=== PATIENT | female | born 1990 | race Caucasian/White ===

== ENCOUNTER 2017-05-15 15:39 | Emergency (ER) | payer SELFPAY ==
--- NOTE | 2017-05-15 16:25 | EDM.PDOC ---
ED HPI GENERAL MEDICAL PROBLEM - General Chief Complaint: Gastrointestinal Problem Stated Complaint: VOMITTING BLOOD Time Seen by Provider: 05/15/17 16:20 Source of Information: Reports: Patient History Limitations: Reports: No Limitations - History of Present Illness INITIAL COMMENTS - FREE TEXT/NARRATIVE: HISTORY AND PHYSICAL: []26-year-old female patient presents with episode of vomiting with small streak of blood in it half hour prior to presenting History of Present Illness: []She does feel somewhat nauseous still but has been drinking water since that Review of Systems: As per history of present illness and below otherwise all systems reviewed and negative. Past medical history: As per history of present illness and as reviewed below otherwise noncontributory. Surgical history: As per history of present illness and as reviewed below otherwise noncontributory. Social history: No reported history of drug or alcohol abuse. Family history: As per history of present illness and as reviewed below otherwise noncontributory. Physical exam: Alert and oriented female answering questions appropriately HEENT: Atraumatic, normocehpalic, pupils reactive, negative for conjunctival pallor or scleral icterus, mucous membranes moist, throat red, neck supple, nontender, trachea midline. Tympanic membrane dull Lungs: Clear to auscultation, breath sounds equal bilaterally, chest non tender. Heart: S1S2, regular, negative for clicks, rubs, or JVD. Abdomen: Soft, nondistended, nontender. Negative for masses or hepatossplenmegaly. Negative for costovertebral tenderness. Pelvis: Stable nontender. Genitourinary: Deferred. Rectal: Deferred Extremities: Atraumatic, negative for cords or calf pain. Neurovascular unremarkable. Neuro: Awake, alert, oriented. Cranial nerves II through XII unremarkable. Cerebellum unremarkable. Motor and sensory unremarkable throughout. Exam nonfocal. Diagnostics: [CBC CMP] Therapeutics: [Zofran Impression: [Viral gastroenteritis] Plan: []Discharged to home Zofran for nausea Omeprazole for stomach Definitive disposition and diagnosis as appropriate pending reevaluation and review of above. - Related Data Allergies Allergy/AdvReac Type Severity Reaction Status Date / Time No Known Allergies Allergy Verified 05/15/17 16:23 Home Meds: Home Meds Omeprazole 20 mg PO BIDAC #20 cap.sr 05/15/17 [Rx] Ondansetron [Zofran ODT] 4 mg PO Q6H PRN #12 tab.dis 05/15/17 [Rx] ED ROS GENERAL - Review of Systems Review Of Systems: ROS reveals no pertinent complaints other than HPI. ED EXAM, GI/ABD - Physical Exam Exam: See Below (see dictation) Course - Vital Signs Last Recorded V/S: Last Vital Signs Temp 36.6 C 05/15/17 16:23 Pulse 72 05/15/17 16:23 Resp 18 05/15/17 16:23 BP 113/85 05/15/17 16:23 Pulse Ox 99 05/15/17 16:23 - Orders/Labs/Meds Orders: Active Orders 24 hr Category Date Time Status CULTURE STREP A CONFIRMATION [] Stat Lab 05/15/17 17:00 Results STREP SCRN A RAPID W CULT CONF [] Stat Lab 05/15/17 17:00 Results Sodium Chloride 0.9% [Saline Flush] Med 05/15/17 16:26 Active 10 ml FLUSH ASDIRECTED PRN Sodium Chloride 0.9% [Saline Flush] Med 05/15/17 16:26 Active 2.5 ml FLUSH ASDIRECTED PRN Saline Lock Insert [OM.PC] Stat Oth 05/15/17 16:26 Ordered Medication Orders Sodium Chloride (Saline Flush) 10 ml FLUSH ASDIRECTED PRN PRN Reason: Keep Vein Open Sodium Chloride (Saline Flush) 2.5 ml FLUSH ASDIRECTED PRN PRN Reason: Keep Vein Open Labs: Laboratory Tests 05/15/17 05/15/17 Range/Units 16:34 16:34 WBC 3.98 L (4.0-11.0) K/uL RBC 4.20 L (4.30-5.90) M/uL Hgb 14.0 (12.0-16.0) g/dL Hct 38.8 (36.0-46.0) % MCV 92.4 (80.0-98.0) fL MCH 33.3 H (27.0-32.0) pg MCHC 36.1 (31.0-37.0) g/dL RDW Std Deviation 41.8 (28.0-62.0) fl RDW Coeff of Maged 12 (11.0-15.0) % Plt Count 232 (150-400) K/uL MPV 10.10 (7.40-12.00) fL Neut % (Auto) 35.9 L (48.0-80.0) % Lymph % (Auto) 55.3 H (16.0-40.0) % Dolores % (Auto) 7.5 (0.0-15.0) % Eos % (Auto) 1.3 (0.0-7.0) % Baso % (Auto) 0.0 (0.0-1.5) % Neut # (Auto) 1.4 (1.4-5.7) K/uL Lymph # (Auto) 2.2 (0.6-2.4) K/uL Dolores # (Auto) 0.3 (0.0-0.8) K/uL Eos # (Auto) 0.1 (0.0-0.7) K/uL Baso # (Auto) 0.0 (0.0-0.1) K/uL Nucleated RBC % 0.0 /100WBC Nucleated RBCs # 0 K/uL Sodium 137 (136-146) mmol/L Potassium 4.3 (3.5-5.1) mmol/L Chloride 105 (98-110) mmol/L Carbon Dioxide 22 (21-31) mmol/L BUN 7 (6.0-23.0) mg/dL Creatinine 0.7 (0.6-1.5) mg/dL Est Cr Clr Drug Dosing 122.35 mL/min Estimated GFR (MDRD) > 60.0 ml/min Glucose 84 (60-110) mg/dL Calcium 9.7 (8.8-10.8) mg/dL Total Bilirubin 0.5 (0.1-1.5) mg/dL AST 23 (5-40) IU/L ALT 23 (8-54) IU/L Alkaline Phosphatase 72 (40-150) Total Protein 7.5 (6.0-8.0) g/dL Albumin 4.3 (3.5-5.0) g/dL Globulin 3.2 (2.0-3.5) g/dL Albumin/Globulin Ratio 1.3 (1.3-2.8) Meds: Medications Generic Name Dose Route Start Last Admin Trade Name Freq PRN Reason Stop Dose Admin Sodium Chloride 10 ml 05/15/17 16:26 Saline Flush FLUSH ASDIRECTED PRN Keep Vein Open Sodium Chloride 2.5 ml 05/15/17 16:26 Saline Flush FLUSH ASDIRECTED PRN Keep Vein Open Discontinued Medications Generic Name Dose Route Start Last Admin Trade Name Semaj PRN Reason Stop Dose Admin Ondansetron HCl 4 mg 05/15/17 16:26 Zofran IVPUSH 05/15/17 16:27 ONETIME ONE Departure - Departure Time of Disposition: 17:43 Disposition: Home, Self-Care 01 Condition: Good Clinical Impression: Vomiting, Viral gastroenteritis - Discharge Information Prescriptions: Omeprazole 20 mg PO BIDAC #20 cap.sr Ondansetron [Zofran ODT] 4 mg PO Q6H PRN #12 tab.dis PRN Reason: Nausea Instructions: Viral Gastroenteritis, Adult, [id number], Nausea and Vomiting, Adult, [id number] Referrals: PCP,None [Primary Care Provider] - Forms: ED Department Discharge Additional Instructions: The following information is given to patients seen in the emergency department who are being discharged to home. This information is to outline your options for follow-up care. We provide all patients seen in our emergency department with a follow-up referral. The need for follow-up, as well as the timing and circumstances, are variable depending upon the specifics of your emergency department visit. If you don't have a primary care physician on staff, we will provide you with a referral. We always advise you to contact your personal physician following an emergency department visit to inform them of the circumstance of the visit and for follow-up with them and/or the need for any referrals to a consulting specialist. The emergency department will also refer you to a specialist when appropriate. This referral assures that you have the opportunity for followup care with a specialist. All of these measure are taken in an effort to provide you with optimal care, which includes your followup. Under all circumstances we always encourage you to contact your private physician who remains a resource for coordinating your care. When calling for followup care, please make the office aware that this follow-up is from your recent emergency room visit. If for any reason you are refused follow-up, please contact the [facility] emergency department at and asked to speak to the emergency department charge nurse. You were found to have a viral gastroenteritis Nausea will be controlled by Zofran ODT this prescription has been sent to your pharmacy may take it 2-3 times a day Omeprazole 20 mg twice daily for the next 10 days prescription has been sent to your pharmacy - My Orders Last 24 Hours: My Active Orders 05/15/17 16:26 Sodium Chloride 0.9% [Saline Flush] 10 ml FLUSH ASDIRECTED PRN Sodium Chloride 0.9% [Saline Flush] 2.5 ml FLUSH ASDIRECTED PRN Saline Lock Insert [OM.PC] Stat 05/15/17 17:00 CULTURE STREP A CONFIRMATION [RM] Stat STREP SCRN A RAPID W CULT CONF [] Stat - Assessment/Plan Last 24 Hours: My Active Orders 05/15/17 16:26 Sodium Chloride 0.9% [Saline Flush] 10 ml FLUSH ASDIRECTED PRN Sodium Chloride 0.9% [Saline Flush] 2.5 ml FLUSH ASDIRECTED PRN Saline Lock Insert [OM.PC] Stat 05/15/17 17:00 CULTURE STREP A CONFIRMATION [RM] Stat STREP SCRN A RAPID W CULT CONF [] Stat
[2017-05-15] MEDS ORDERED: Sodium Chloride 0.9% 10 ML Syringe FLUSH PRN (16:26)
[2017-05-15] MEDS ORDERED: Ondansetron 4 MG/2 ML SDV IVPUSH ONE (16:26)
[2017-05-15] MEDS ORDERED: Sodium Chloride 0.9% 2.5 ML Syringe FLUSH PRN (16:26)
[2017-05-15 17:15] LABS: CHLORIDE,CL 105 mmol/L (98-110); SODIUM,NA 137 mmol/L (136-146)
== END 2017-05-15 17:58 | disposition home or self-care (01) ==
LOC: MW.ED 15:39
DX: A08.4 Viral intestinal infection, unspecified (principal)
CPT/HCPCS: 36415; 80053; 85025; 87081; 87804; 87880; 96374; 99284; J2405; 99283

== ENCOUNTER 2017-10-28 20:44 | Emergency (ER) | payer MEDICAID, OTHER ==
--- NOTE | 2017-10-28 21:23 | EDM.PDOC ---
ED HPI GENERAL MEDICAL PROBLEM - General Chief Complaint: Abdominal Pain Stated Complaint: ABDOMINAL PAIN Time Seen by Provider: 10/28/17 21:22 Source of Information: Reports: Patient History Limitations: Reports: No Limitations - History of Present Illness INITIAL COMMENTS - FREE TEXT/NARRATIVE: HISTORY AND PHYSICAL: []27-year-old female presenting with abdominal pain nausea vomiting diarrhea 1 week History of Present Illness: []Patient relates the right side abdominal pain. She has had a appendectomy in the past Patient states that she vomited once today She had diarrhea twice today. On entering the room she is rocking herself while sitting on the cart. Review of Systems: As per history of present illness and below otherwise all systems reviewed and negative. Past medical history: As per history of present illness and as reviewed below otherwise noncontributory. Surgical history: As per history of present illness and as reviewed below otherwise noncontributory. Social history: No reported history of drug or alcohol abuse. Family history: As per history of present illness and as reviewed below otherwise noncontributory. Physical exam: Alert and oriented female answering questions appropriately in full sentences without any shortness of breath. Nontoxic in appearance. HEENT: Atraumatic, normocehpalic, pupils reactive, negative for conjunctival pallor or scleral icterus, mucous membranes moist, throat clear, neck supple, nontender, trachea midline. Lungs: Clear to auscultation, breath sounds equal bilaterally, chest non tender. Heart: S1S2, regular, negative for clicks, rubs, or JVD. Abdomen: Soft, nondistended, mildly tender on the right side of abdomen. Negative for masses or hepatossplenmegaly. Negative for costovertebral tenderness. Pelvis: Stable nontender. Genitourinary: Deferred. Rectal: Deferred Extremities: Atraumatic, negative for cords or calf pain. Neurovascular unremarkable. Neuro: Awake, alert, oriented. Cranial nerves II through XII unremarkable. Cerebellum unremarkable. Motor and sensory unremarkable throughout. Exam nonfocal. Lab Diagnostics: []CBC, CMP, flat and upright abdomen x-ray Therapeutics: []Dilaudid 1 mg IV 1 L of IV fluid Zofran IV Impression: []Gastroenteritis Nausea /vomiting Plan: []Discharged home Follow up with your Primary care provider this week Definitive disposition and diagnosis as appropriate pending reevaluation and review of above. Onset: Gradual Duration: Week(s): (1) Location: Reports: Abdomen Quality: Reports: Ache Severity: Moderate Improves with: Reports: None Worsens with: Reports: None Associated Symptoms: Reports: No Other Symptoms Abdominal Pain Score (Numeric/FACES): 6 - Related Data Allergies Allergy/AdvReac Type Severity Reaction Status Date / Time No Known Allergies Allergy Verified 05/15/17 16:23 Home Meds: Home Meds . [No Known Home Meds] 10/28/17 [History] Past Medical History - Past Health History Medical/Surgical History: Denies Medical/Surgical History Social & Family History - Family History Family Medical History: Noncontributory - Tobacco Use Smoking Status *Q: Current Every Day Smoker Years of Tobacco use: 10 Packs/Tins Daily: 0.5 ED ROS GENERAL - Review of Systems Review Of Systems: ROS reveals no pertinent complaints other than HPI. ED EXAM, GI/ABD - Physical Exam Exam: See Below (see dictation) Course - Vital Signs Last Recorded V/S: Last Vital Signs Temp 36.6 C 10/28/17 21:12 Pulse 55 L 10/28/17 21:12 Resp 18 10/28/17 21:12 BP 112/70 10/28/17 21:12 Pulse Ox 99 10/28/17 21:12 - Orders/Labs/Meds Orders: Active Orders 24 hr Category Date Time Status Abdomen 2V AP Flat Upright [CR] Stat Exams 10/28/17 21:43 Ordered CULTURE URINE [RM] Stat Lab 10/28/17 21:20 Received HCG QUALITATIVE,URINE [URCHEM] Stat Lab 10/28/17 21:20 Ordered UA W/MICROSCOPIC [URIN] Stat Lab 10/28/17 21:20 Ordered Sodium Chloride 0.9% [Normal Saline] 1,000 ml Med 10/28/17 21:42 Active IV STAT Sodium Chloride 0.9% [Saline Flush] Med 10/28/17 21:43 Active 10 ml FLUSH ASDIRECTED PRN Sodium Chloride 0.9% [Saline Flush] Med 10/28/17 21:43 Active 2.5 ml FLUSH ASDIRECTED PRN Saline Lock Insert [OM.PC] Stat Oth 10/28/17 21:43 Ordered Medication Orders Sodium Chloride (Normal Saline) 1,000 mls @ 999 mls/hr IV STAT ONE Stop: 10/28/17 22:42 Last Admin: 10/28/17 21:30 Dose: 999 mls/hr Sodium Chloride (Saline Flush) 10 ml FLUSH ASDIRECTED PRN PRN Reason: Keep Vein Open Sodium Chloride (Saline Flush) 2.5 ml FLUSH ASDIRECTED PRN PRN Reason: Keep Vein Open Labs: Laboratory Tests 10/28/17 10/28/17 10/28/17 Range/Units 21:20 21:20 21:20 WBC 6.69 (4.0-11.0) K/uL RBC 4.67 (4.30-5.90) M/uL Hgb 15.1 (12.0-16.0) g/dL Hct 43.1 (36.0-46.0) % MCV 92.3 (80.0-98.0) fL MCH 32.3 H (27.0-32.0) pg MCHC 35.0 (31.0-37.0) g/dL RDW Std Deviation 44.7 (28.0-62.0) fl RDW Coeff of Maged 13 (11.0-15.0) % Plt Count 271 (150-400) K/uL MPV 10.10 (7.40-12.00) fL Neut % (Auto) 30.7 L (48.0-80.0) % Lymph % (Auto) 58.0 H (16.0-40.0) % Evangeline % (Auto) 9.4 (0.0-15.0) % Eos % (Auto) 1.8 (0.0-7.0) % Baso % (Auto) 0.1 (0.0-1.5) % Neut # (Auto) 2.1 (1.4-5.7) K/uL Lymph # (Auto) 3.9 H (0.6-2.4) K/uL Evangeline # (Auto) 0.6 (0.0-0.8) K/uL Eos # (Auto) 0.1 (0.0-0.7) K/uL Baso # (Auto) 0.0 (0.0-0.1) K/uL Nucleated RBC % 0.0 /100WBC Nucleated RBCs # 0 K/uL Sodium 140 (136-145) mmol/L Potassium 3.6 (3.5-5.1) mmol/L Chloride 104 (98-107) mmol/L Carbon Dioxide 27.8 (21.0-32.0) mmol/L BUN 9 (7.0-18.0) mg/dL Creatinine 0.9 (0.6-1.0) mg/dL Est Cr Clr Drug Dosing 93.29 mL/min Estimated GFR (MDRD) > 60.0 ml/min Glucose 93 (74-106) mg/dL Calcium 9.1 (8.5-10.1) mg/dL Total Bilirubin 0.6 (0.2-1.0) mg/dL AST 21 (15-37) IU/L ALT 29 (14-63) IU/L Alkaline Phosphatase 77 (46-116) U/L Total Protein 7.9 (6.4-8.2) g/dL Albumin 4.0 (3.4-5.0) g/dL Globulin 3.9 H (2.0-3.5) g/dL Albumin/Globulin Ratio 1.0 L (1.3-2.8) Urine Color YELLOW Urine Appearance CLEAR Urine pH 6.0 (5.0-8.0) Ur Specific [place]worth 1.020 (1.001-1.035) Urine Protein NEGATIVE (NEGATIVE) mg/dL Urine Glucose (UA) NEGATIVE (NEGATIVE) mg/dL Urine Ketones NEGATIVE (NEGATIVE) mg/dL Urine Occult Blood NEGATIVE (NEGATIVE) Urine Nitrite NEGATIVE (NEGATIVE) Urine Bilirubin NEGATIVE (NEGATIVE) Urine Urobilinogen 1.0 (<2.0) EU/dL Ur Leukocyte Esterase NEGATIVE (NEGATIVE) Urine RBC 0-1 (0-2/HPF) Urine WBC 0-2 (0-5/HPF) Ur Epithelial Cells FEW (NONE-FEW) Urine Bacteria FEW (NEGATIVE) Urine HCG, Qual (NEGATIVE) 10/28/17 Range/Units 21:20 WBC (4.0-11.0) K/uL RBC (4.30-5.90) M/uL Hgb (12.0-16.0) g/dL Hct (36.0-46.0) % MCV (80.0-98.0) fL MCH (27.0-32.0) pg MCHC (31.0-37.0) g/dL RDW Std Deviation (28.0-62.0) fl RDW Coeff of Maged (11.0-15.0) % Plt Count (150-400) K/uL MPV (7.40-12.00) fL Neut % (Auto) (48.0-80.0) % Lymph % (Auto) (16.0-40.0) % Evangeline % (Auto) (0.0-15.0) % Eos % (Auto) (0.0-7.0) % Baso % (Auto) (0.0-1.5) % Neut # (Auto) (1.4-5.7) K/uL Lymph # (Auto) (0.6-2.4) K/uL Evangeline # (Auto) (0.0-0.8) K/uL Eos # (Auto) (0.0-0.7) K/uL Baso # (Auto) (0.0-0.1) K/uL Nucleated RBC % /100WBC Nucleated RBCs # K/uL Sodium (136-145) mmol/L Potassium (3.5-5.1) mmol/L Chloride (98-107) mmol/L Carbon Dioxide (21.0-32.0) mmol/L BUN (7.0-18.0) mg/dL Creatinine (0.6-1.0) mg/dL Est Cr Clr Drug Dosing mL/min Estimated GFR (MDRD) ml/min Glucose (74-106) mg/dL Calcium (8.5-10.1) mg/dL Total Bilirubin (0.2-1.0) mg/dL AST (15-37) IU/L ALT (14-63) IU/L Alkaline Phosphatase (46-116) U/L Total Protein (6.4-8.2) g/dL Albumin (3.4-5.0) g/dL Globulin (2.0-3.5) g/dL Albumin/Globulin Ratio (1.3-2.8) Urine Color Urine Appearance Urine pH (5.0-8.0) Ur Specific Acworth (1.001-1.035) Urine Protein (NEGATIVE) mg/dL Urine Glucose (UA) (NEGATIVE) mg/dL Urine Ketones (NEGATIVE) mg/dL Urine Occult Blood (NEGATIVE) Urine Nitrite (NEGATIVE) Urine Bilirubin (NEGATIVE) Urine Urobilinogen (<2.0) EU/dL Ur Leukocyte Esterase (NEGATIVE) Urine RBC (0-2/HPF) Urine WBC (0-5/HPF) Ur Epithelial Cells (NONE-FEW) Urine Bacteria (NEGATIVE) Urine HCG, Qual NEGATIVE (NEGATIVE) Meds: Medications Generic Name Dose Route Start Last Admin Trade Name Freq PRN Reason Stop Dose Admin Sodium Chloride 1,000 mls @ 999 mls/hr 10/28/17 21:42 10/28/17 21:30 Normal Saline IV 10/28/17 22:42 999 mls/hr STAT ONE Administration Sodium Chloride 10 ml 10/28/17 21:43 Saline Flush FLUSH ASDIRECTED PRN Keep Vein Open Sodium Chloride 2.5 ml 10/28/17 21:43 Saline Flush FLUSH ASDIRECTED PRN Keep Vein Open Discontinued Medications Generic Name Dose Route Start Last Admin Trade Name Freq PRN Reason Stop Dose Admin Ketorolac Tromethamine 30 mg 10/28/17 21:42 10/28/17 22:00 Toradol IVPUSH 10/28/17 21:43 30 mg ONETIME ONE Administration Ondansetron HCl 4 mg 10/28/17 21:42 10/28/17 22:06 Zofran IVPUSH 10/28/17 21:43 4 mg ONETIME ONE Administration Departure - Departure Time of Disposition: 22:16 Disposition: Home, Self-Care 01 Condition: Good Clinical Impression: Gastroenteritis - Discharge Information *PRESCRIPTION DRUG MONITORING PROGRAM REVIEWED*: Not Applicable *COPY OF PRESCRIPTION DRUG MONITORING REPORT IN PATIENT HILDA: Not Applicable Instructions: Viral Gastroenteritis, Adult Referrals: PCP,None [Primary Care Provider] - Forms: ED Department Discharge Additional Instructions: The following information is given to patients seen in the emergency department who are being discharged to home. This information is to outline your options for follow-up care. We provide all patients seen in our emergency department with a follow-up referral. The need for follow-up, as well as the timing and circumstances, are variable depending upon the specifics of your emergency department visit. If you don't have a primary care physician on staff, we will provide you with a referral. We always advise you to contact your personal physician following an emergency department visit to inform them of the circumstance of the visit and for follow-up with them and/or the need for any referrals to a consulting specialist. The emergency department will also refer you to a specialist when appropriate. This referral assures that you have the opportunity for followup care with a specialist. All of these measure are taken in an effort to provide you with optimal care, which includes your followup. Under all circumstances we always encourage you to contact your private physician who remains a resource for coordinating your care. When calling for followup care, please make the office aware that this follow-up is from your recent emergency room visit. If for any reason you are refused follow-up, please contact the [facility] emergency department at and asked to speak to the emergency department charge nurse. You do not have any acute infection process that is treatable with antibiotics Use [id number] products to stop her diarrhea as directed on the bottle/box Follow-up With your primary care provider Return to the emergency room instructed and discussed - My Orders Last 24 Hours: My Active Orders 10/28/17 21:20 CULTURE URINE [RM] Stat HCG QUALITATIVE,URINE [URCHEM] Stat UA W/MICROSCOPIC [URIN] Stat 10/28/17 21:42 Sodium Chloride 0.9% [Normal Saline] 1,000 ml IV STAT 10/28/17 21:43 Abdomen 2V AP Flat Upright [CR] Stat Sodium Chloride 0.9% [Saline Flush] 10 ml FLUSH ASDIRECTED PRN Sodium Chloride 0.9% [Saline Flush] 2.5 ml FLUSH ASDIRECTED PRN Saline Lock Insert [OM.PC] Stat - Assessment/Plan Last 24 Hours: My Active Orders 10/28/17 21:20 CULTURE URINE [RM] Stat HCG QUALITATIVE,URINE [URCHEM] Stat UA W/MICROSCOPIC [URIN] Stat 10/28/17 21:42 Sodium Chloride 0.9% [Normal Saline] 1,000 ml IV STAT 10/28/17 21:43 Abdomen 2V AP Flat Upright [CR] Stat Sodium Chloride 0.9% [Saline Flush] 10 ml FLUSH ASDIRECTED PRN Sodium Chloride 0.9% [Saline Flush] 2.5 ml FLUSH ASDIRECTED PRN Saline Lock Insert [OM.PC] Stat
[2017-10-28] MEDS ORDERED: Ondansetron 4 MG/2 ML SDV IVPUSH ONE (21:42)
[2017-10-28] MEDS ORDERED: Sodium Chloride 0.9% 1,000 ML IV ONE (21:42)
[2017-10-28] MEDS ORDERED: Ketorolac 30 MG/ML SDV IVPUSH ONE (21:42)
[2017-10-28] MEDS ORDERED: Sodium Chloride 0.9% 2.5 ML Syringe FLUSH PRN (21:43)
[2017-10-28] MEDS ORDERED: Sodium Chloride 0.9% 10 ML Syringe FLUSH PRN (21:43)
[2017-10-28 22:08] LABS: CHLORIDE,CL 104 mmol/L (98-107); SODIUM,NA 140 mmol/L (136-145)
--- NOTE | 2017-10-29 10:33 | CR ---
EXAM DATE: 10/28/17 PATIENT'S AGE: 27 Patient: CRUZITO ORTEGA Facility: [place], [place] Site . Site : 1990 Study: XRay Abdomen [id number]/[id number] 10:55:56 PM Ordering Physician: Doctor Acosta Final Report: INDICATION: Right lower quadrant abdominal pain with nausea, vomiting, diarrhea. TECHNIQUE: Upright and supine views of the abdomen, total of 3 images. IMPRESSION : The bowel gas pattern is nonobstructive. Upright exam shows no free air under the hemidiaphragms. Mild volume of colonic stool. No pathologic abdominal calcifications. If clinical concern for acute appendicitis, consider CT evaluation. Dictated by Jose C Chinchilla MD @ 10/28/2017 11:06:31 PM Dictated by: Jose C Chinchilla MD @ 10/28/2017 23:06:41 (Electronic Signature) Report Signed by Proxy. MTDNery
== END 2017-10-28 23:15 | disposition home or self-care (01) ==
LOC: MW.ED 20:44
DX: K52.9 Noninfective gastroenteritis and colitis, unspecified (principal); F17.210 Nicotine dependence, cigarettes, uncomplicated
CPT/HCPCS: 74019; 80053; 81001; 81025; 85025; 87086; 96361; 96374; 96375; 99284; J1885; J2405; J7040

== ENCOUNTER 2019-08-08 22:49 | Emergency (ER) | payer BC, MEDICAID ==
--- NOTE | 2019-08-08 23:15 | EDM.PDOC ---
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 She has no other symptoms besides slight cramping Onset: Today Location: Reports: Head, Chest Improves with: Reports: None Worsens with: Reports: None Associated Symptoms: Reports: No Other Symptoms Lower Abdomen Pain Score (Numeric/FACES): 3 - Related Data Allergies Allergy/AdvReac Type Severity Reaction Status Date / Time No Known Allergies Allergy Verified 08/08/19 22:59 Home Meds: Home Meds . 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 Musculoskeletal History: Reports: None Neurological History: Reports: None Psychiatric History: Reports: None Endocrine/Metabolic History: Reports: None Hematologic History: Reports: None Immunologic History: Reports: None Oncologic (Cancer) History: Reports: None Dermatologic History: Reports: None - Infectious Disease History Infectious Disease History: Reports: Chicken Pox - Past Surgical History Head Surgeries/Procedures: Reports: None HEENT Surgical History: Reports: Tonsillectomy Cardiovascular Surgical History: Reports: None Respiratory Surgical History: Reports: None GI Surgical History: Reports: Appendectomy Female Surgical History: Reports: D&C Endocrine Surgical History: Reports: None Neurological Surgical History: Reports: None Musculoskeletal Surgical History: Reports: None Oncologic Surgical History: Reports: None Dermatological Surgical History: Reports: None Social & Family History - Family History Family Medical History: Noncontributory Other Cardiac Family History: Mother- heart disease : Reports: Renal Disease/Insufficiency Endocrine/Metabolic: Reports: Diabetes, Type I - Tobacco Use Smoking Status *Q: Current Every Day Smoker Years of Tobacco use: 1 Packs/Tins Daily: 0.3 - Caffeine Use Caffeine Use: Reports: Coffee - Recreational Drug Use Recreational Drug Use: No ED ROS GENERAL - Review of Systems Review Of Systems: See Below Constitutional: Reports: No Symptoms HEENT: Reports: No Symptoms Respiratory: Reports: No Symptoms Cardiovascular: Reports: No Symptoms Endocrine: Reports: No Symptoms GI/Abdominal: Reports: No Symptoms : Reports: No Symptoms Musculoskeletal: Reports: No Symptoms Skin: Reports: No Symptoms Neurological: Reports: No Symptoms Psychiatric: Reports: No Symptoms Hematologic/Lymphatic: Reports: No Symptoms Immunologic: Reports: No Symptoms ED EXAM - Physical Exam Exam: See Below Exam Limited By: No Limitations General Appearance: Alert, WD/WN, No Apparent Distress Eye Exam: Bilateral Eye: Normal Fundi, Normal Inspection Ears: Normal External Exam, Normal Canal, Hearing Grossly Normal, Normal TMs Nose: Normal Inspection, Normal Mucosa Throat/Mouth: Normal Inspection, Normal Lips, Normal Teeth Head: Atraumatic, Normocephalic Neck: Normal Inspection, Supple, Non-Tender Respiratory/Chest: No Respiratory Distress, Lungs Clear, Normal Breath Sounds, No Accessory Muscle Use, Chest Non-Tender Cardiovascular: Normal Peripheral Pulses, Regular Rate, Rhythm GI/Abdominal Exam: Normal Bowel Sounds, Soft, Non-Tender, No Distention, No Abnormal Bruit Rectal Exam: Deferred (Female) Exam: Other (Has 8weeks demise on ultrasound.) Psychiatric: Normal Affect, Normal Mood Skin Exam: Warm, Dry, Intact, Normal Color Lymphatic: No Adenopathy Course - Vital Signs Text/Narrative:: She has 8-week demise on ultrasound Discussed case with Facundo on-call/she states they will follow-up with Dr. Dietz This point she does not need Cytotec/patient has had qualitative beta-hCG and needs hCG is to follow. Last Recorded V/S: Last Vital Signs Temp 98.3 F 08/08/19 22:59 Pulse 78 08/09/19 01:30 Resp 16 08/09/19 01:30 BP 120/69 08/09/19 01:30 Pulse Ox 99 08/09/19 01:30 - Orders/Labs/Meds Labs: Laboratory Tests 08/08/19 08/08/19 08/08/19 Range/Units 23:06 23:15 23:15 WBC 7.36 (4.0-11.0) K/uL RBC 4.28 L (4.30-5.90) M/uL Hgb 12.4 (12.0-16.0) g/dL Hct 37.4 (36.0-46.0) % MCV 87.4 (80.0-98.0) fL MCH 29.0 (27.0-32.0) pg MCHC 33.2 (31.0-37.0) g/dL RDW Std Deviation 47.3 (28.0-62.0) fl RDW Coeff of Maged 15 (11.0-15.0) % Plt Count 326 (150-400) K/uL MPV 9.50 (7.40-12.00) fL Neut % (Auto) 48.5 (48.0-80.0) % Lymph % (Auto) 42.4 H (16.0-40.0) % Anson % (Auto) 7.2 (0.0-15.0) % Eos % (Auto) 1.8 (0.0-7.0) % Baso % (Auto) 0.1 (0.0-1.5) % Neut # (Auto) 3.6 (1.4-5.7) K/uL Lymph # (Auto) 3.1 H (0.6-2.4) K/uL [place]son # (Auto) 0.5 (0.0-0.8) K/uL Eos # (Auto) 0.1 (0.0-0.7) K/uL Baso # (Auto) 0.0 (0.0-0.1) K/uL Nucleated RBC % 0.0 /100WBC Nucleated RBCs # 0 K/uL Sodium 137 (136-145) mmol/L Potassium 3.4 L (3.5-5.1) mmol/L Chloride 102 (98-107) mmol/L Carbon Dioxide 26.6 (21.0-32.0) mmol/L BUN 7 (7.0-18.0) mg/dL Creatinine 0.8 (0.6-1.0) mg/dL Est Cr Clr Drug Dosing 108.44 mL/min Estimated GFR (MDRD) > 60.0 ml/min Glucose 85 (74-106) mg/dL Calcium 8.9 (8.5-10.1) mg/dL Total Bilirubin 0.7 (0.2-1.0) mg/dL AST 32 (15-37) IU/L ALT 35 (14-63) IU/L Alkaline Phosphatase 89 (46-116) U/L Total Protein 7.6 (6.4-8.2) g/dL Albumin 3.8 (3.4-5.0) g/dL Globulin 3.8 (2.6-4.0) g/dL Albumin/Globulin Ratio 1.0 (0.9-1.6) HCG, Quant mIU/mL Urine HCG, Qual POSITIVE (NEGATIVE) 08/08/19 Range/Units 23:15 WBC (4.0-11.0) K/uL RBC (4.30-5.90) M/uL Hgb (12.0-16.0) g/dL Hct (36.0-46.0) % MCV (80.0-98.0) fL MCH (27.0-32.0) pg MCHC (31.0-37.0) g/dL RDW Std Deviation (28.0-62.0) fl RDW Coeff of Maged (11.0-15.0) % Plt Count (150-400) K/uL MPV (7.40-12.00) fL Neut % (Auto) (48.0-80.0) % Lymph % (Auto) (16.0-40.0) % Anson % (Auto) (0.0-15.0) % Eos % (Auto) (0.0-7.0) % Baso % (Auto) (0.0-1.5) % Neut # (Auto) (1.4-5.7) K/uL Lymph # (Auto) (0.6-2.4) K/uL Anson # (Auto) (0.0-0.8) K/uL Eos # (Auto) (0.0-0.7) K/uL Baso # (Auto) (0.0-0.1) K/uL Nucleated RBC % /100WBC Nucleated RBCs # K/uL Sodium (136-145) mmol/L Potassium (3.5-5.1) mmol/L Chloride (98-107) mmol/L Carbon Dioxide (21.0-32.0) mmol/L BUN (7.0-18.0) mg/dL Creatinine (0.6-1.0) mg/dL Est Cr Clr Drug Dosing mL/min Estimated GFR (MDRD) ml/min Glucose (74-106) mg/dL Calcium (8.5-10.1) mg/dL Total Bilirubin (0.2-1.0) mg/dL AST (15-37) IU/L ALT (14-63) IU/L Alkaline Phosphatase (46-116) U/L Total Protein (6.4-8.2) g/dL Albumin (3.4-5.0) g/dL Globulin (2.6-4.0) g/dL Albumin/Globulin Ratio (0.9-1.6) HCG, Quant 15911.0 mIU/mL Urine HCG, Qual (NEGATIVE) Departure - Departure Time of Disposition: 02:15 Disposition: Home, Self-Care 01 Condition: Fair Clinical Impression: demise - Discharge Information Instructions: Demise Referrals: PCP,None [Primary Care Provider] - Hedy Dietz MD [Physician] - Forms: ED Department Discharge Additional Instructions: The patient is to follow-up with Dr. Dietz If patient has severe bleeding/pain patient is to return Patient will probably miscarry within the next 2 to 3 days To return for fever or chills or severe abdominal pain Sepsis Event Note - Evaluation Sepsis Screening Result: No Definite Risk - Focused Exam Vital Signs: Vital Signs Temp Pulse Resp BP Pulse Ox 08/09/19 01:30 78 16 120/69 99 08/09/19 00:22 80 16 125/80 98 08/08/19 22:59 98.3 F 94 16 123/79 99 Date Exam was Performed: 08/09/19 Time Exam was Performed: 02:13
[2019-08-08 23:41] LABS: BLOOD UREA NITROGEN,BUN 7 mg/dL (7.0-18.0); CARBON DIOXIDE,CO2 26.6 mmol/L (21.0-32.0); CHLORIDE,CL 102 mmol/L (98-107); GLUCOSE RANDOM 85 mg/dL (74-106); POTASSIUM,K 3.4 mmol/L (3.5-5.1); SODIUM,NA 137 mmol/L (136-145)
--- NOTE | 2019-08-09 01:44 | US ---
INDICATION: Vaginal bleeding TECHNIQUE: Ultrasound OB pelvis transabdominal and transvaginal. Real-time alcantar-scale imaging of the pelvis was performed. COMPARISON: None available FINDINGS: There is an intrauterine gestational sac, containing a pole with a crown-rump length of 15 mm, corresponding to 8 weeks and 0 days, compared to 9 weeks and 2 days by dates. No cardiac activity is documented. A yolk sac is seen, measuring 5 mm. There is small fluid in the endocervical canal. The right ovary measures 3.0 x 1.4 x 3.1 cm and the left ovary measures 3.3 x 2.1 x 3.3 cm, containing a 1.8 x 1.5 x 1.7 cm corpus luteum. Bilateral ovarian Doppler flow is documented. No significant free fluid is seen. IMPRESSION: An intrauterine gestation at 8 weeks and 0 days by crown-rump length, without cardiac activity, consistent with demise. The findings were discussed with Dr. Burt, by phone, on 08/09/2019 at 1:40 a.m.. Dictated by Simone Guillen MD @ 08/09/2019 1:42:52 AM Dictated by: Simone Guillen MD @ 08/09/2019 01:42:59 (Electronically Signed)
== END 2019-08-09 02:30 | disposition home or self-care (01) ==
LOC: MW.ED 22:49
DX: O02.1 Missed abortion (principal); F17.210 Nicotine dependence, cigarettes, uncomplicated
CPT/HCPCS: 36415; 76817; 76817-26; 80053; 81025; 84702; 85025; 99283; 99284-25

== ENCOUNTER → 2019-08-12 | Day surgery (SDC) | payer MEDICAID ==
[~2019-08-12] MED LIST: Acetaminophen/HYDROcodone 325-5 MG Tab PO PRN; Ketorolac 30 MG/ML SDV IVPUSH ONE; Lactated Ringers 1,000 ML IV SCH; Midazolam 1 MG/ML 2 ML SDV ONE; Propofol 200 MG/20 ML SDV ONE; fentaNYL 100 MCG/2 ML SDV ONE
--- NOTE | 2019-08-12 12:21 | PCM.PREANE ---
Preanesthetic Assessment - Anesthesia/Transfusion/Family Hx Anesthesia History: Prior Anesthesia Without Reaction Family History of Anesthesia Reaction: No Transfusion History: No Prior Transfusion(s) - Review of Systems General: No Symptoms Pulmonary: No Symptoms Cardiovascular: No Symptoms Gastrointestinal: No Symptoms Neurological: No Symptoms Other: Reports: None - Physical Assessment NPO Status Date: 08/11/19 ASA Class: 2 Mental Status: Alert & Oriented x3 Airway Class: Mallampati = 2 Dentition: Reports: Normal Dentition ROM/Head Extension: Full Lungs: Clear to Auscultation, Normal Respiratory Effort Cardiovascular: Regular Rate, Regular Rhythm - Allergies Allergies/Adverse Reactions: Allergies Allergy/AdvReac Type Severity Reaction Status Date / Time No Known Allergies Allergy Verified 08/08/19 22:59 - Blood Blood Available: No - Anesthesia Plan Pre-Op Medication Ordered: None - Acknowledgements Pt an Appropriate Candidate for the Planned Anesthesia: Yes Alternatives and Risks of Anesthesia Discussed w Pt/Guardian: Yes Pt/Guardian Understands and Agrees with Anesthesia Plan: Yes PreAnesthesia Questionnaire - Past Health History Medical/Surgical History: Denies Medical/Surgical History HEENT History: Reports: None Cardiovascular History: Reports: None Respiratory History: Reports: None Gastrointestinal History: Reports: None Genitourinary History: Reports: 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: , 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 Musculoskeletal History: Reports: None Neurological History: Reports: None Psychiatric History: Reports: None Endocrine/Metabolic History: Reports: None Hematologic History: Reports: None Immunologic History: Reports: None Oncologic (Cancer) History: Reports: None Dermatologic History: Reports: None - Infectious Disease History Infectious Disease History: Reports: Chicken Pox - Past Surgical History Head Surgeries/Procedures: Reports: None HEENT Surgical History: Reports: Tonsillectomy Cardiovascular Surgical History: Reports: None Respiratory Surgical History: Reports: None GI Surgical History: Reports: Appendectomy Female Surgical History: Reports: D&C Endocrine Surgical History: Reports: None Neurological Surgical History: Reports: None Musculoskeletal Surgical History: Reports: None Oncologic Surgical History: Reports: None Dermatological Surgical History: Reports: None - HOME MEDS Home Medications: Home Meds . [No Known Home Meds] 08/08/19 [History]
--- NOTE | 2019-08-12 13:04 | PCM.DCSUM1 ---
Discharge Summary - Hospital Course Diagnosis: Stroke: No - Discharge Data Discharge Date: 08/12/19 Discharge Disposition: Home, Self-Care 01 Condition: Good - Referral to Home Health Primary Care Physician: PCP None - Patient Summary/Data Operative Procedure(s) Performed: D&E - Patient Instructions Diet: Usual Diet as Tolerated Activity: As Tolerated - Discharge Plan Home Medications: Home Meds . [No Known Home Meds] 08/08/19 [History] - Discharge Summary/Plan Comment DC Time >30 min.: Yes - General Info Date of Service: 08/12/19 Functional Status: Reports: Pain Controlled - Review of Systems General: Reports: No Symptoms HEENT: Reports: No Symptoms Pulmonary: Reports: No Symptoms Cardiovascular: Reports: No Symptoms Gastrointestinal: Reports: No Symptoms Genitourinary: Reports: No Symptoms Musculoskeletal: Reports: No Symptoms Skin: Reports: No Symptoms Neurological: Reports: No Symptoms Psychiatric: Reports: No Symptoms - Patient Data Vitals - Most Recent: Last Vital Signs Temp 36.1 C 08/12/19 12:46 Pulse 75 08/12/19 12:46 Resp 16 08/12/19 12:46 BP 115/70 08/12/19 12:46 Pulse Ox 99 08/12/19 12:46 Weight - Most Recent: 70.307 kg Med Orders - Current: Current Medications Discontinued Medications Fentanyl (Sublimaze) Confirm Administered Dose 100 mcg .ROUTE .STK-MED ONE Stop: 08/12/19 12:28 Midazolam HCl (Versed 1 Mg/Ml) Confirm Administered Dose 2 mg .ROUTE .STK-MED ONE Stop: 08/12/19 12:28 Midazolam HCl (Versed 1 Mg/Ml) Confirm Administered Dose 2 mg .ROUTE .STK-MED ONE Stop: 08/12/19 12:42 Propofol (Diprivan 20 Ml) Confirm Administered Dose 200 mg .ROUTE .STK-MED ONE Stop: 08/12/19 12:28 - Exam General: Reports: Alert, Oriented HEENT: Reports: Pupils Equal, Pupils Reactive, EOMI, Mucous Membr. Moist/[place] Neck: Reports: Supple Lungs: Reports: Clear to Auscultation, Normal Respiratory Effort Cardiovascular: Reports: Regular Rate, Regular Rhythm GI/Abdominal Exam: Normal Bowel Sounds, Soft, Non-Tender, No Organomegaly, No Distention, No Abnormal Bruit, No Mass, Pelvis Stable (Female) Exam: Normal External Exam, Normal Speculum Exam, Normal Bimanual Exam Rectal (Female) Exam: Normal Exam, Normal Rectal Tone Back Exam: Reports: Normal Inspection, Full Range of Motion Extremities: Normal Inspection, Normal Range of Motion, Non-Tender, No Pedal Edema, Normal Capillary Refill Skin: Reports: Warm, Dry, Intact Wound/Incisions: Reports: Healing Well Neurological: Reports: No New Focal Deficit Psy/Mental Status: Reports: Alert, Normal Affect, Normal Mood
--- NOTE | 2019-08-12 13:04 | PCM.OPNOTE ---
- General Post-Op/Procedure Note Date of Surgery/Procedure: 08/12/19 Operative Procedure(s): D&E Pre Op Diagnosis: blighted ovum Post-Op Diagnosis: Same Anesthesia Technique: Spinal Primary Surgeon: Kevin Bonilla EBL in mLs: 50 Complications: None Condition: Good
--- NOTE | 2019-08-12 13:27 | PCM.POSTAN ---
POST ANESTHESIA ASSESSMENT - MENTAL STATUS Mental Status: Alert, Oriented - VITAL SIGNS Vital Signs: Last Vital Signs Temp 36.2 C 08/12/19 13:02 Pulse 71 08/12/19 13:21 Resp 12 08/12/19 13:21 BP 107/70 08/12/19 13:21 Pulse Ox 97 08/12/19 13:21 - RESPIRATORY Respiratory Status: Respiratory Rate WNL, Airway Patent, O2 Saturation Stable - CARDIOVASCULAR CV Status: Pulse Rate WNL, Blood Pressure Stable - GASTROINTESTINAL GI Status: No Symptoms - PAIN Pain Score: 7 Free Text/Narrative:: Pts eyes closed and smiling. plan to give pain pill in sameday surgery if needed. - POST OP HYDRATION Hydration Status: Adequate & Stable
--- NOTE | 2019-08-12 15:43 | OR ---
SURGEON: Kevin Bonilla MD DATE OF PROCEDURE: 08/12/2019 PREOPERATIVE DIAGNOSIS: Blighted ovum. POSTOPERATIVE DIAGNOSIS: Blighted ovum. OPERATION PERFORMED: Dilatation and evacuation. MEAT CUTTER APPRENTICE: OR tech. ANESTHESIA: Spinal, Cynthia Garcia and Dr. Wallace. ESTIMATED BLOOD LOSS: 50 to 70 mL. COMPLICATIONS: None. FINDING: Products of conception. INDICATION FOR SURGERY: A 28-year-old patient being , seen in our clinic, is found to have a blighted ovum. The patient declined conservative measures, expectant measure, and Cytotec. She elected to have D and E. PROCEDURE IN DETAIL: The patient was brought to the OR, properly identified. After adequate level of spinal anesthesia, patient was prepped and draped in sterile fashion as usual. A weighted speculum was placed in the vagina. Straight catheter used to empty the bladder and then a single toothed tenaculum applied to the cervix. The cervix sequentially dilated to accommodate #8 cannula and a #8 curved cannula was placed in the endometrial cavity and hooked to suction curette and suction curettage performed removing all products of conception from the uterus. Once this had done, the suction was stopped and the cannula removed and the procedure ended. Instrument and sponge count was completed, and the patient tolerated the procedure well, went to recovery room in stable general condition. SHANICE / ANA /[id number]
== END | disposition home or self-care (01) ==
LOC: MW.SDS 11:59
PROVIDERS: ATTEND Obstetrics & Gynecology
DX: O02.0 Blighted ovum and nonhydatidiform mole (principal)
CPT/HCPCS: 59812; A9270; J1885; J2250; J2704; J3010; J7120; 88305

== ENCOUNTER 2020-03-13 11:29 | Emergency (ER) | payer MEDICAID ==
--- NOTE | 2020-03-13 21:31 | PCM.SN.2 ---
- Free Text/Narrative Note: Per nursing notes, patient left without being seen from triage. She was not seen by myself.
== END 2020-03-13 13:44 | disposition left against medical advice (07) ==
LOC: MW.ED 11:29
DX: Z53.21 Procedure and treatment not carried out due to patient leaving prior to being seen by health care provider (principal)

== ENCOUNTER 2020-03-14 12:50 | Emergency (ER) | payer MEDICAID ==
--- NOTE | 2020-03-14 13:07 | EDM.PDOC ---
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 Musculoskeletal History: Reports: None Neurological History: Reports: None Psychiatric History: Reports: None Endocrine/Metabolic History: Reports: None Hematologic History: Reports: None Immunologic History: Reports: None Oncologic (Cancer) History: Reports: None Dermatologic History: Reports: None - Infectious Disease History Infectious Disease History: Reports: Chicken Pox - Past Surgical History Head Surgeries/Procedures: Reports: None HEENT Surgical History: Reports: Tonsillectomy Cardiovascular Surgical History: Reports: None Respiratory Surgical History: Reports: None GI Surgical History: Reports: Appendectomy Female Surgical History: Reports: D&C Endocrine Surgical History: Reports: None Neurological Surgical History: Reports: None Musculoskeletal Surgical History: Reports: None Oncologic Surgical History: Reports: None Dermatological Surgical History: Reports: None Social & Family History - Family History Family Medical History: No Pertinent Family History Other Cardiac Family History: Mother- heart disease : Reports: Renal Disease/Insufficiency Endocrine/Metabolic: Reports: Diabetes, Type I - Caffeine Use Caffeine Use: Reports: Coffee Course - Vital Signs Last Recorded V/S: Last Vital Signs Temp 36.1 C 03/14/20 13:03 Pulse 61 03/14/20 13:03 Resp 20 03/14/20 13:03 BP 109/86 03/14/20 13:03 Pulse Ox 98 03/14/20 13:03 Departure - Discharge Information Referrals: PCP,None [Primary Care Provider] - Sepsis Event Note (ED) - Evaluation Sepsis Screening Result: No Definite Risk - Focused Exam Vital Signs: Vital Signs Temp Pulse Resp BP Pulse Ox 03/14/20 13:03 36.1 C 61 20 109/86 98
[2020-03-14] MEDS ORDERED: Sodium Chloride 0.9% 1,000 ML IV ONE (13:45)
[2020-03-14] MEDS ORDERED: Morphine 4 MG/ML Syringe IVPUSH ONE (13:45)
[2020-03-14] MEDS ORDERED: Ondansetron 4 MG/2 ML SDV IVPUSH ONE (13:45)
--- NOTE | 2020-03-14 13:56 | EDM.PDOC ---
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 Patient states that Dr. Darshana Peng told her on 02/29/2020 that she was miscarrying and was going to allow her the chance to pass products on her own. Patient states she did not have any vaginal bleeding but was having some abdominal discomfort. Patient states she checked into the emergency room yesterday but while waiting in the waiting room, was able to get a hold of Dr. Bonilla and was instructed to come to the clinic so she checked out of the emergency room before being seen. Patient states Dr. Bonilla prescribed her Cytotec to help pass the products. Patient states that she started taking the medication last night and has had vaginal bleeding, passing blood clots, and lower abdominal pain. Patient states when she woke up this morning, the pain increased as well as the bleeding and she has been vomiting so has not been able to keep down the pain medication that Dr. Darshana Peng gave her. Patient states she did take 1 dose of [place] this morning before the vomiting sent in but has not been able to take any more pain medication since. Patient states she has a h istory of appendectomy but denies any other abdominal surgeries. Patient states she has had 27 pregnancies that have all miscarried early, 2 requiring D&C and others passing spontaneously according to patient. States she lived in [place] for most of these pregnancies. Patient denies fever, chills, chest pain, shortness of breath, or cough. Denies headache, neck stiff ness, change in vision, syncope, or near syncope. Denies diarrhea, constipation, or dysuria. Has not noted any blood in urine or stool. Review of systems: As per history of present illness and below otherwise all systems reviewed and negative. Past medical history: As per history of present illness and as reviewed below otherwise noncontributory. Surgical history: As per history of present illness and as reviewed below otherwise noncontributory. Social history: See social history for further information Family history: As per history of present illness and as reviewed below otherwise noncontributory. Physical exam: General: Patient is alert, oriented, and in no acute distress. Patient sitting on exam table and does appear in pain, holding lower abdomen. Vitals stable and reviewed by me. HEENT: Atraumatic, normocephalic, pupils equal and reactive bilaterally, negative for conjunctival pallor or scleral icterus, mucous membranes moist, TMs normal bilaterally, throat clear, neck supple, nontender, trachea midline. No drooling or trismus noted. No meningeal signs. No hot potato voice noted. Lungs: Clear to auscultation, breath sounds equal bilaterally, chest nontender. Heart: S1S2, regular rate and rhythm without overt murmur Abdomen: Soft, nondistended, moderate suprapubic tender. Negative kessler sign. Negative rebound. Negative for masses or hepatosplenomegaly. Negative for costovertebral tenderness. Pelvis: Stable nontender. Genitourinary: Slitter Cut Off Operator at bedside Monique Chavez External genitalia grossly unremarkable. There is a moderate amount of bleeding from the vaginal vault with small clots formed. Cervix is slightly open with a consistent trickle of bleeding from the os. Rectal: Deferred. Skin: Intact, warm, dry. No lesions or rashes noted. Extremities: Atraumatic, negative for cords or calf pain. Neurovascular unremarkable. Neuro: Awake, alert, oriented. Cranial nerves II through XII unremarkable. Cerebellum unremarkable. Motor and sensory unremarkable throughout. Exam nonfocal. Notes: Dr. Pretty directly involved in patient care. Dr. Bonilla has come in to personally see and evaluate the patient. See his official consult note for further treatment / disposition for patient. Signs and symptoms that would prompt return to the ED thoroughly discussed with patient. Discussed importance for follow-up with her NETWORK SYSTEMS ENGINEER provider. Patient is asking for additional follow-up for a another NETWORK SYSTEMS ENGINEER provider rather than Dr. Bonilla. Patient was provided with [facility] women's health information if she desires to set up an appointment with a different provider. I will give patient a prescription for Zofran for nausea and vomiting. Close/strict return precautions discussed with patient. Voices understanding and is agreeable to plan of care. Denies any further questions or concerns at this time. Diagnostics: CBC, CMP, UA, Blood type, TVUS, Hcg Quant Therapeutics: NS, Morphine, Zofran, Prescription: Zofran Impression: Incomplete Plan: 1. Pelvic rest until cleared by your OBGYN (no tampons, sex, etc...) 2. Take medication as prescribed to you by Dr. Bonilla. Take medication as prescribed. You can also use Tylenol as directed for pain and discomfort. 3. Follow up with your NETWORK SYSTEMS ENGINEER as scheduled and as discussed. Return to the ED as needed and as discussed. Definitive disposition and diagnosis as appropriate pending reevaluation and review of above. Lower Abdomen Pain Score (Numeric/FACES): 9 - Related Data Allergies Allergy/AdvReac Type Severity Reaction Status Date / Time No Known Allergies Allergy Verified 03/14/20 13:03 Home Meds: Home Meds Ondansetron [Zofran ODT] 4 mg PO Q6H PRN #8 tab.dis 03/14/20 [Rx] Past Medical History - Past Health History Medical/Surgical History: Denies Medical/Surgical History HEENT History: Reports: None Cardiovascular History: Reports: None Respiratory History: Reports: None Gastrointestinal History: Reports: None Other Gastrointestinal History: has had GERD in the past- not currently taking medication Genitourinary History: Reports: STD NETWORK SYSTEMS ENGINEER History: Reports: , Spontaneous Musculoskeletal History: Reports: None Neurological History: Reports: None Psychiatric History: Reports: None Endocrine/Metabolic History: Reports: None Hematologic History: Reports: Anemia Immunologic History: Reports: None Oncologic (Cancer) History: Reports: None Dermatologic History: Reports: None - Infectious Disease History Infectious Disease History: Reports: Chicken Pox - Past Surgical History Head Surgeries/Procedures: Reports: None HEENT Surgical History: Reports: Tonsillectomy Cardiovascular Surgical History: Reports: None Respiratory Surgical History: Reports: None GI Surgical History: Reports: Appendectomy Female Surgical History: Reports: D&C Endocrine Surgical History: Reports: None Neurological Surgical History: Reports: None Musculoskeletal Surgical History: Reports: None Oncologic Surgical History: Reports: None Dermatological Surgical History: Reports: None Social & Family History - Family History Family Medical History: No Pertinent Family History Other Cardiac Family History: Mother- heart disease : Reports: Renal Disease/Insufficiency Endocrine/Metabolic: Reports: Diabetes, Type I - Tobacco Use Tobacco Use Status *Q: Former Tobacco User Used Tobacco, but Quit: Yes Month/Year Tobacco Last Used: 01/31 - Caffeine Use Caffeine Use: Reports: Coffee - Recreational Drug Use Recreational Drug Use: No ED ROS GENERAL - Review of Systems Review Of Systems: Comprehensive ROS is negative, except as noted in HPI. ED EXAM, GENERAL - Physical Exam Exam: See Below (see dictation) Course - Vital Signs Last Recorded V/S: Last Vital Signs Temp 97 F 03/14/20 13:03 Pulse 75 03/14/20 15:27 Resp 14 03/14/20 15:27 BP 114/64 03/14/20 15:27 Pulse Ox 99 03/14/20 15:27 - Orders/Labs/Meds Orders: Active Orders 24 hr Category Date Time Status Notify Provider Consults [RC] ASDIRECTED Care 03/14/20 15:44 Active Consult to Physician [CONS] Stat Cons 03/14/20 15:43 Active CULTURE URINE [RM] Stat Lab 03/14/20 12:58 Received Labs: Laboratory Tests 03/14/20 03/14/20 03/14/20 Range/Units 12:58 12:58 13:59 WBC 6.57 (4.0-11.0) K/uL RBC 4.27 L (4.30-5.90) M/uL Hgb 12.3 (12.0-16.0) g/dL Hct 36.8 (36.0-46.0) % MCV 86.2 (80.0-98.0) fL MCH 28.8 (27.0-32.0) pg MCHC 33.4 (31.0-37.0) g/dL RDW Std Deviation 47.5 (28.0-62.0) fl RDW Coeff of Maged 15 (11.0-15.0) % Plt Count 306 (150-400) K/uL MPV 9.70 (7.40-12.00) fL Neut % (Auto) 39.6 L (48.0-80.0) % Lymph % (Auto) 49.3 H (16.0-40.0) % [place] % (Auto) 8.8 (0.0-15.0) % Eos % (Auto) 2.1 (0.0-7.0) % Baso % (Auto) 0.2 (0.0-1.5) % Neut # (Auto) 2.6 (1.4-5.7) K/uL Lymph # (Auto) 3.2 H (0.6-2.4) K/uL [place] # (Auto) 0.6 (0.0-0.8) K/uL Eos # (Auto) 0.1 (0.0-0.7) K/uL Baso # (Auto) 0.0 (0.0-0.1) K/uL Nucleated RBC % 0.0 /100WBC Nucleated RBCs # 0 K/uL Sodium (136-145) mmol/L Potassium (3.5-5.1) mmol/L Chloride (98-107) mmol/L Carbon Dioxide (21.0-32.0) mmol/L BUN (7.0-18.0) mg/dL Creatinine (0.6-1.0) mg/dL Est Cr Clr Drug Dosing mL/min Estimated GFR (MDRD) ml/min Glucose (74-106) mg/dL Calcium (8.5-10.1) mg/dL Total Bilirubin (0.2-1.0) mg/dL AST (15-37) IU/L ALT (14-63) IU/L Alkaline Phosphatase (46-116) U/L Total Protein (6.4-8.2) g/dL Albumin (3.4-5.0) g/dL Globulin (2.6-4.0) g/dL Albumin/Globulin Ratio (0.9-1.6) HCG, Quant mIU/mL Urine Color RED Urine Appearance CLOUDY Urine pH 5.5 (5.0-8.0) Ur Specific [place] >= 1.030 (1.001-1.035) Urine Protein 100 H (NEGATIVE) mg/dL Urine Glucose (UA) NEGATIVE (NEGATIVE) mg/dL Urine Ketones NEGATIVE (NEGATIVE) mg/dL Urine Occult Blood MODERATE H (NEGATIVE) Urine Nitrite POSITIVE H (NEGATIVE) Urine Bilirubin NEGATIVE (NEGATIVE) Urine Urobilinogen 1.0 (<2.0) EU/dL Ur Leukocyte Esterase TRACE H (NEGATIVE) Urine RBC TOO NUMEROUS TO CT H (0-2/HPF) Urine WBC 0-4 (0-5/HPF) Ur Epithelial Cells FEW (NONE-FEW) Urine Bacteria FEW (NEGATIVE) Urinalysis Comment Urine HCG, Qual POSITIVE (NEGATIVE) Blood Type 03/14/20 03/14/20 Range/Units 13:59 13:59 WBC (4.0-11.0) K/uL RBC (4.30-5.90) M/uL Hgb (12.0-16.0) g/dL Hct (36.0-46.0) % MCV (80.0-98.0) fL MCH (27.0-32.0) pg MCHC (31.0-37.0) g/dL RDW Std Deviation (28.0-62.0) fl RDW Coeff of Maged (11.0-15.0) % Plt Count (150-400) K/uL MPV (7.40-12.00) fL Neut % (Auto) (48.0-80.0) % Lymph % (Auto) (16.0-40.0) % [place] % (Auto) (0.0-15.0) % Eos % (Auto) (0.0-7.0) % Baso % (Auto) (0.0-1.5) % Neut # (Auto) (1.4-5.7) K/uL Lymph # (Auto) (0.6-2.4) K/uL [place] # (Auto) (0.0-0.8) K/uL Eos # (Auto) (0.0-0.7) K/uL Baso # (Auto) (0.0-0.1) K/uL Nucleated RBC % /100WBC Nucleated RBCs # K/uL Sodium 137 (136-145) mmol/L Potassium 3.6 (3.5-5.1) mmol/L Chloride 104 (98-107) mmol/L Carbon Dioxide 21.6 (21.0-32.0) mmol/L BUN 4 L (7.0-18.0) mg/dL Creatinine 0.7 (0.6-1.0) mg/dL Est Cr Clr Drug Dosing 122.81 mL/min Estimated GFR (MDRD) > 60.0 ml/min Glucose 79 (74-106) mg/dL Calcium 9.0 (8.5-10.1) mg/dL Total Bilirubin 0.6 (0.2-1.0) mg/dL AST 30 (15-37) IU/L ALT 47 (14-63) IU/L Alkaline Phosphatase 125 H (46-116) U/L Total Protein 7.7 (6.4-8.2) g/dL Albumin 3.7 (3.4-5.0) g/dL Globulin 4.0 (2.6-4.0) g/dL Albumin/Globulin Ratio 0.9 (0.9-1.6) HCG, Quant 97573.0 mIU/mL Urine Color Urine Appearance Urine pH (5.0-8.0) Ur Specific [place] (1.001-1.035) Urine Protein (NEGATIVE) mg/dL Urine Glucose (UA) (NEGATIVE) mg/dL Urine Ketones (NEGATIVE) mg/dL Urine Occult Blood (NEGATIVE) Urine Nitrite (NEGATIVE) Urine Bilirubin (NEGATIVE) Urine Urobilinogen (<2.0) EU/dL Ur Leukocyte Esterase (NEGATIVE) Urine RBC (0-2/HPF) Urine WBC (0-5/HPF) Ur Epithelial Cells (NONE-FEW) Urine Bacteria (NEGATIVE) Urinalysis Comment Urine HCG, Qual (NEGATIVE) Blood Type B POSITIVE Meds: Medications Discontinued Medications Generic Name Dose Route Start Last Admin Trade Name Freq PRN Reason Stop Dose Admin Sodium Chloride 1,000 mls @ 999 mls/hr 03/14/20 13:45 03/14/20 14:01 Normal Saline IV 03/14/20 14:45 999 mls/hr STAT ONE Administration Morphine Sulfate 4 mg 03/14/20 13:45 03/14/20 14:01 Morphine IVPUSH 03/14/20 13:46 4 mg ONETIME ONE Administration Ondansetron HCl 4 mg 03/14/20 13:45 03/14/20 14:01 Zofran IVPUSH 03/14/20 13:46 4 mg ONETIME ONE Administration Departure - Departure Time of Disposition: 15:50 Disposition: Home, Self-Care 01 Clinical Impression: Incomplete - Discharge Information Prescriptions: Ondansetron [Zofran ODT] 4 mg PO Q6H PRN #8 tab.dis PRN Reason: Nausea/Vomiting Referrals: PCP,None [Primary Care Provider] - Forms: ED Department Discharge Additional Instructions: The following information is given to patients seen in the emergency department who are being discharged to home. This information is to outline your options for follow-up care. We provide all patients seen in our emergency department with a follow-up referral. The need for follow-up, as well as the timing and circumstances, are variable depending upon the specifics of your emergency department visit. If you don't have a primary care physician on staff, we will provide you with a referral. We always advise you to contact your personal physician following an emergency department visit to inform them of the circumstance of the visit and for follow-up with them and/or the need for any referrals to a consulting specialist. The emergency department will also refer you to a specialist when appropriate. This referral assures that you have the opportunity for follow-up care with a specialist. All of these measure are taken in an effort to provide you with optimal care, which includes your follow-up. Under all circumstances we always encourage you to contact your private physician who remains a resource for coordinating your care. When calling for follow-up care, please make the office aware that this follow-up is from your recent emergency room visit. If for any reason you are refused follow-up, please contact the [facility] at and asked to speak to the emergency department charge nurse. [facility] [address] [place] [address] [place] [address] [facility] [address] [place] [id number] 1. Pelvic rest until cleared by your OBGYN (no tampons, sex, etc...) 2. Take medication as prescribed to you by Dr. Bonilla. Take medication as prescribed. You can also use Tylenol as directed for pain and discomfort. 3. Follow up with your NETWORK SYSTEMS ENGINEER as scheduled and as discussed. Return to the ED as needed and as discussed. Sepsis Event Note (ED) - Evaluation Sepsis Screening Result: No Definite Risk - Focused Exam Vital Signs: Vital Signs Temp Pulse Resp BP Pulse Ox 03/14/20 15:27 75 14 114/64 99 03/14/20 14:27 60 16 110/61 99 03/14/20 13:03 97 F 61 20 109/86 98 - My Orders Last 24 Hours: My Active Orders 03/14/20 12:58 CULTURE URINE [RM] Stat 03/14/20 15:43 Consult to Physician [CONS] Stat 03/14/20 15:44 Notify Provider Consults [RC] ASDIRECTED - Assessment/Plan Last 24 Hours: My Active Orders 03/14/20 12:58 CULTURE URINE [RM] Stat 03/14/20 15:43 Consult to Physician [CONS] Stat 03/14/20 15:44 Notify Provider Consults [RC] ASDIRECTED
[2020-03-14 14:55] LABS: BLOOD UREA NITROGEN,BUN 4 mg/dL (7.0-18.0); CARBON DIOXIDE,CO2 21.6 mmol/L (21.0-32.0); CHLORIDE,CL 104 mmol/L (98-107); GLUCOSE RANDOM 79 mg/dL (74-106); POTASSIUM,K 3.6 mmol/L (3.5-5.1); SODIUM,NA 137 mmol/L (136-145)
--- NOTE | 2020-03-14 15:21 | US ---
Examination: Obstetric ultrasound Indication: . Bleeding. Technique: Grayscale, color Doppler, and spectral Doppler images are obtained transabdominally and transvaginally. Comparison: None available Findings: Uterus measures 8.8 x 5.1 x 5.8 cm. No gestational sac in the uterus. There is heterogeneous material, likely blood products filling the endometrium which is 2.5 cm thick. There is no flow within the endometrial contents. Indeterminate cystic structure in the cul-de-sac measuring 4.5 x 6.8 x 6.0 cm. No definite ovarian tissue is identified adjacent to the cyst. Neither ovary is clearly identified. Impression: 1. No intrauterine identified. There is heterogeneous material in the uterine cavity l likely representing blood products. Retained products of conception not excluded. 2. Indeterminate cystic structure in the cul-de-sac, not documented in other prior ultrasound reports. This could be an ovarian cyst (no definite adjacent ovarian tissue identified), or possibly loculated blood or serous fluid. If this were an ovarian cyst and it was displaced medially, that could raise the possibility of ovarian torsion. Dictated by Jasson Lara MD @ Mar 14 2020 3:08PM Signed by Dr. Jasson Lara @ Mar 14 2020 3:19PM
--- NOTE | 2020-03-14 16:00 | PCM.SN.2 ---
- Free Text/Narrative Note: The patient was presented to me by the mid-level provider, who sees patients independently as a licensed independent practitioner by [facility] and [facility] law. Up until the time that I was consulted and assumed supervision, the mid-level provider had been solely and independently caring for this patient and they were responsible for all aspects of care including performing the history and physical, formulating medical decision making, ordering medications, and ordering and evaluating testing. I have personally and independently seen and evaluated the patient at bedside and, if available, have spoken with the with the family. I agree with the history, physical, medical decision making, and plan of treatment as documented by the mid-level provider. I have performed the medical decision making for this patient, including assessing the results of all diagnostic testing and I have instructed the mid-level provider to document the results and carry through with the treatment plan that I deemed appropriate. If needed, any other comments, a focused physical examination, or my own medical decision making are documented below. In brief, this is a 29-year-old female with a past medical history of multiple failed pregnancies, currently under the care of Dr. Bonilla with [facility] for incomplete miscarriage. She was seen in his clinic yesterday and was prescribed Cytotec to help with the miscarriage progress. Since leaving the clinic yesterday, she has complained of worsening vaginal bleeding and worsening of midline pelvic pain. She comes back to the ER this afternoon for evaluation of these complaints. She did take 1 dose of [place] at home but was not able to keep it down due to vomiting. Focused physical exam Vital signs reviewed. Nursing notes reviewed. Constitutional: Awake, alert, non-distressed. Head: Normocephalic, atraumatic. Pulmonary: normal work of breathing, no accessory muscle use. Abdomen/GI: Soft, minimal midline pelvic tenderness, nondistended, no guarding or rigidity, no masses. Integumentary: Appropriate color for ethnicity, warm, dry, no pallor or jaundic e, no rash. Neurologic: Alert, answering questions appropriately, normal speech, no facial droop, moving all extremities well. Psychiatric: Appropriate mood and affect, normal thought process. Appears much more comfortable after receiving morphine in the ED. Labs today show normal hemoglobin, white blood cell count, and platelet count. Metabolic panel is unremarkable. Serum quantitative hCG is 13,697. Urinalysis shows 100 protein, moderate occult blood, positive nitrites, numerous red blood cells. We obtained a pelvic ultrasound which shows no IUP, does note heterogenous material in the uterine cavity likely retained blood products. The radiologist did also note an indeterminate cystic structure in the cul-de-sac which measures 4.5 x 6.8 x 6.0 cm. The radiologist did not identify any definite ovarian tissue and did not see either ovary. The radiologist was concerned about possible ovarian torsion given the appearance of this indeterminate cystic structure in the cul-de-sac. This is a significant change from her most recent pelvic ultrasound obtained on 08/09/2019. The ultrasound at that time showed normal-appearing ovaries with good flow to both adnexa. Given possibility of ovarian torsion, we did formally consult the on-call ABA THERAPIST Dr. Bonilla. He evaluated the patient in the emergency department at approximately 1545 hrs. and states that he is not concerned about ovarian torsion. He is comfortable with discharging the patient home with continuance of her prescribed pain medications. Patient will follow up with Dr. Bonilla's office in the next few days. Dictated note by Dr. Bonilla will be attached to this chart. Patient subsequently discharged to self-care in good condition.
--- NOTE | 2020-03-15 07:50 | CONS ---
DATE OF CONSULTATION: 03/14/2020 DATE OF : 1990 PRIMARY CARE PHYSICIAN: None PCP Emergency Room Consultation Ms. Martin has a blighted ovum. I saw her in the office yesterday and I started her on Cytotec, and I gave her some pain medications; however, she presented to the emergency room today complaining of pain and vaginal bleeding. She had an ultrasound, which shows that she expelled most of the products of conception. Comparing to the ultrasound I did on her yesterday that it seems to be her uterus is almost empty; however, the patient does have corpus luteal cyst of the . The radiologist read a possibility of torsion of that ovary; however, the patient clinically does not have a torsion. Her abdomen is soft. There is minimum tenderness. There is no rebound tenderness. It is most likely this is corpus luteal cyst of the . I reassured the patient and I told her to continue to take her pain medication and to keep her appointment to the office next week. SHANICE / ANA /[id number]
== END 2020-03-14 16:28 | disposition home or self-care (01) ==
LOC: MW.ED 12:50
DX: O03.4 Incomplete spontaneous abortion without complication (principal); Z87.891 Personal history of nicotine dependence; Z90.49 Acquired absence of other specified parts of digestive tract
CPT/HCPCS: 36415; 76801; 80053; 81001; 81025; 84702; 85025; 86900; 86901; 87086; 87088; 87186; 96374; 96375; 99284; J2270; J2405; J7030

== ENCOUNTER 2020-09-21 14:55 | Emergency (ER) | payer SELFPAY ==
--- NOTE | 2020-09-21 15:47 | EDM.PDOC ---
ED HPI GENERAL MEDICAL PROBLEM - General Chief Complaint: Skin Complaint Stated Complaint: INFECTION ON NECK Time Seen by Provider: 09/21/20 15:03 Source of Information: Reports: Patient History Limitations: Reports: No Limitations - History of Present Illness INITIAL COMMENTS - FREE TEXT/NARRATIVE: HISTORY AND PHYSICAL: History of present illness: Patient is a 30-year-old female who presents to the ED today with concern of possible tattoo infection that she noticed when her son pointed at her tattoo just prior to travel to the emergency room stating that he was seeing some crusting. The tattoo is on her posterior neck so she states that she is unable to see it and when he had mentioned this because she is not able to see it well was concerned that it could be infected. Patient denies any fevers, redness to the area, or pain of the area and states that she thought it was healing appropriately. Patient states that her son had noticed that it was peeling so she thought it was infected. Patient states that she had this done by her friend who is a makeup artistry instructor with clean needles and was disinfected prior to the tattooing. Patient denies fever, chills, chest pain, shortness of breath, or cough. Denies headache, neck stiff ness, change in vision, syncope, or near syncope. Denies nausea, vomiting, abdominal pain, diarrhea, constipation, or dysuria. Has not no ricardo any blood in urine or stool. Patient has been eating and drinking appropriately. Review of systems: As per history of present illness and below otherwise all systems reviewed and negative. Past medical history: As per history of present illness and as reviewed below otherwise noncontributory. Surgical history: As per history of present illness and as reviewed below otherwise noncontribut ory. Social history: See social history for further information Family history: As per history of present illness and as reviewed below otherwise noncontributory. Physical exam: General: Patient is alert, oriented, and in no acute distress. Patient sitting comfortably on exam table. Vitals stable and reviewed by me. HEENT: There is a tattoo noted to the posterior neck which appears dry and flaky without signs of erythema, edema, increased warmth, or pain to palpation. Otherwise, atraumatic, normocephalic, pupils equal and reactive bilaterally, negative for conjunctival pallor or scleral icterus, mucous membranes moist, TMs normal bilaterally, throat clear, neck supple, nontender, trachea midline. No drooling or trismus noted. No meningeal signs. No hot potato voice noted. Lungs: Clear to auscultation, breath sounds equal bilaterally, chest nontender. Heart: S1S2, regular rate and rhythm without overt murmur Abdomen: Soft, nondistended, nontender. Negative for masses or hepatospl enomegaly. Negative for costovertebral tenderness. Pelvis: Stable nontender. Genitourinary: Deferred. Rectal: Deferred. Skin: Intact, warm, dry. No lesions or rashes noted. Extremities: Atraumatic, negative for cords or calf pain. Neurovascular unremarkable. Neuro: Awake, alert, oriented. Cranial nerves II through XII unremarkable. Cerebellum unremarkable. Motor and sensory unremarkable throughout. Exam nonfocal. Notes: Signs and symptoms that would prompt return to the ED thoroughly discussed with patient. Discussed importance of follow-up with a primary care provider. Voices understanding and is agreeable to plan of care. Denies any further questions or concerns at this time. Diagnostics: None Therapeutics: None Prescription: None Impression: Tattoo with dry skin Plan: 1. Apply Aquaphor to the area frequently to keep the area moist and not dry as discussed. Return to the ED as needed and as discussed. Definitive disposition and diagnosis as appropriate pending reevaluation and review of above. - Related Data Allergies Allergy/AdvReac Type Severity Reaction Status Date / Time No Known Allergies Allergy Verified 09/21/20 15:13 Home Meds: Home Meds . 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 Musculoskeletal History: Reports: None Neurological History: Reports: None Psychiatric History: Reports: None Endocrine/Metabolic History: Reports: None Hematologic History: Reports: Anemia Immunologic History: Reports: None Oncologic (Cancer) History: Reports: None Dermatologic History: Reports: None - Infectious Disease History Infectious Disease History: Reports: Chicken Pox - Past Surgical History Head Surgeries/Procedures: Reports: None HEENT Surgical History: Reports: Tonsillectomy Cardiovascular Surgical History: Reports: None Respiratory Surgical History: Reports: None GI Surgical History: Reports: Appendectomy Female Surgical History: Reports: D&C Other Female Surgeries/Procedures: previous D&E x2 Endocrine Surgical History: Reports: None Neurological Surgical History: Reports: None Musculoskeletal Surgical History: Reports: None Oncologic Surgical History: Reports: None Dermatological Surgical History: Reports: None Social & Family History - Family History Family Medical History: No Pertinent Family History Other Cardiac Family History: Mother- heart disease : Reports: Renal Disease/Insufficiency Endocrine/Metabolic: Reports: Diabetes, Type I - Tobacco Use Packs/Tins Daily: 0.5 - Caffeine Use Caffeine Use: Reports: Coffee - Recreational Drug Use Recreational Drug Use: No ED ROS GENERAL - Review of Systems Review Of Systems: Comprehensive ROS is negative, except as noted in HPI. ED EXAM, SKIN/RASH Exam: See Below (see dictation) Course - Vital Signs Last Recorded V/S: Last Vital Signs Temp 97.5 F 09/21/20 15:11 Pulse 70 09/21/20 16:06 Resp 16 09/21/20 16:06 BP 110/70 09/21/20 16:06 Pulse Ox 98 09/21/20 16:06 Departure - Departure Time of Disposition: 15:46 Disposition: Home, Self-Care 01 Clinical Impression: Tattoo reaction - Discharge Information Instructions: Rash, Adult Referrals: Daniela Carter MD [Primary Care Provider] - Forms: ED Department Discharge Additional Instructions: The following information is given to patients seen in the emergency department who are being discharged to home. This information is to outline your options for follow-up care. We provide all patients seen in our emergency department wit h a follow-up referral. The need for follow-up, as well as the timing and circumstances, are variable depending upon the specifics of your emergency department visit. If you don't have a primary care physician on staff, we will provide you with a referral. We always advise you to contact your personal physician following an emergency department visit to inform them of the circumstance of the visit and for follow-up with them and/or the need for any referrals to a consulting specialist. The emergency department will also refer you to a specialist when appropriate. This referral assures that you have the opportunity for follow-up care with a specialist. All of these measure are taken in an effort to provide you with optimal care, which includes your follow-up. Under all circumstances we always encourage you to contact your private physician who remains a resource for coordinating your care. When calling for follow-up care, please make the office aware that this follow-up is from your recent emergency room visit. If for any reason you are refused follow-up, please contact the [facility] Emergency Department at and asked to speak to the emergency department charge nurse. [facility] [address] [place] [id number] [facility] [address] [place] [id number] 1. Apply Aquaphor to the area frequently to keep the area moist and not dry as discussed. Return to the ED as needed and as discussed. Sepsis Event Note (ED) - Evaluation Sepsis Screening Result: No Definite Risk - Focused Exam Vital Signs: Vital Signs Temp Pulse Resp BP Pulse Ox 09/21/20 16:06 70 16 110/70 98 09/21/20 15:11 97.5 F 68 16 113/75 96
== END 2020-09-21 16:07 | disposition home or self-care (01) ==
LOC: MW.ED 14:55
DX: L85.3 Xerosis cutis (principal); Z72.0 Tobacco use
CPT/HCPCS: 99282

== ENCOUNTER 2021-03-10 18:12 | Emergency (ER) | payer MEDICAID ==
[2021-03-10] MEDS ORDERED: Ibuprofen 600 MG Tab PO ONE (18:29)
[2021-03-10] MEDS ORDERED: Acetaminophen/oxyCODONE 325-5 MG Tab PO ONE (18:29)
--- NOTE | 2021-03-10 18:32 | EDM.PDOC ---
ED HPI GENERAL MEDICAL PROBLEM - General Chief Complaint: Upper Extremity Injury/Pain Stated Complaint: POSSIBLE BROKEN THUMB Time Seen by Provider: 03/10/21 18:26 Source of Information: Reports: Patient History Limitations: Reports: No Limitations - History of Present Illness INITIAL COMMENTS - FREE TEXT/NARRATIVE: 30-year-old female no relevant past medical history presents for right thumb injury. Patient hit her thumb in the car door. She notes a throbbing sensation and some bleeding around the base of the nailbed. She denies any other injuries. She is right-handed. Right Finger-Thumb Pain Score (Numeric/FACES): 10 - Related Data Allergies Allergy/AdvReac Type Severity Reaction Status Date / Time No Known Allergies Allergy Verified 03/10/21 18:26 Home Meds: Home Meds Acetaminophen/oxyCODONE [Percocet 325-5 MG] 1 each PO Q6H PRN #8 tab 03/10/21 [Rx] Ibuprofen [Motrin] 600 mg PO Q6H PRN #20 tab 03/10/21 [Rx] Past Medical History - Past Health History Medical/Surgical History: Denies Medical/Surgical History HEENT History: Reports: None Cardiovascular History: Reports: None Respiratory History: Reports: None Gastrointestinal History: Reports: None Other Gastrointestinal History: has had GERD in the past- not currently taking medication 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: , 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 Musculoskeletal History: Reports: None Neurological History: Reports: None Psychiatric History: Reports: None Endocrine/Metabolic History: Reports: None Hematologic History: Reports: Anemia Immunologic History: Reports: None Oncologic (Cancer) History: Reports: None Dermatologic History: Reports: None - Infectious Disease History Infectious Disease History: Reports: Chicken Pox - Past Surgical History Head Surgeries/Procedures: Reports: None HEENT Surgical History: Reports: Tonsillectomy Cardiovascular Surgical History: Reports: None Respiratory Surgical History: Reports: None GI Surgical History: Reports: Appendectomy Female Surgical History: Reports: D&C Other Female Surgeries/Procedures: previous D&E x2 Endocrine Surgical History: Reports: None Neurological Surgical History: Reports: None Musculoskeletal Surgical History: Reports: None Oncologic Surgical History: Reports: None Dermatological Surgical History: Reports: None Social & Family History - Family History Family Medical History: No Pertinent Family History Other Cardiac Family History: Mother- heart disease : Reports: Renal Disease/Insufficiency Endocrine/Metabolic: Reports: Diabetes, Type I - Caffeine Use Caffeine Use: Reports: Coffee Review of Systems - Review of Systems Review Of Systems: Comprehensive ROS is negative, except as noted in HPI. ED EXAM, GENERAL - Physical Exam Exam: See Below Exam Limited By: No Limitations General Appearance: Alert, WD/WN, No Apparent Distress Ears: Hearing Grossly Normal Throat/Mouth: Normal Voice, No Airway Compromise Head: Atraumatic, Normocephalic Respiratory/Chest: No Respiratory Distress, No Accessory Muscle Use Cardiovascular: Normal Peripheral Pulses Extremities: Other (swelling of DIP R thumb, small amount of bleeding around base of nailbed, however good color to finger and nailbed, normal capillary refill, intact sensation, no overt deformity) Neurological: Alert, Normal Cognition, Normal Gait Psychiatric: Normal Affect, Normal Mood Skin Exam: Warm, Dry, Intact, Normal Color Course - Vital Signs Last Recorded V/S: Last Vital Signs Temp 98.1 F 03/10/21 18:27 Pulse 80 03/10/21 18:27 Resp 18 03/10/21 18:27 BP 123/80 03/10/21 18:27 Pulse Ox 98 03/10/21 18:27 - Orders/Labs/Meds Orders: Active Orders 24 hr Category Date Time Status Splinting [RC] ASDIRECTED Care 03/10/21 18:55 Ordered Fingers Thumb Rt F5 [CR] Stat Exams 03/10/21 18:29 Taken Meds: Medications Discontinued Medications Generic Name Dose Route Start Last Admin Trade Name Freq PRN Reason Stop Dose Admin Ibuprofen 600 mg 03/10/21 18:29 03/10/21 18:39 Ibuprofen 600 Mg Tab PO 03/10/21 18:30 600 mg ONETIME ONE Administration Oxycodone/Acetaminophen 1 tab 03/10/21 18:29 03/10/21 18:42 Acetaminophen/Oxycodone 325-5 Mg Tab PO 03/10/21 18:30 1 tab ONETIME ONE Administration - Re-Assessments/Exams Free Text/Narrative Re-Assessment/Exam: 03/10/21 18:31 Will treat pain, will get XR to r/o fracture Departure - Departure Time of Disposition: 18:56 Disposition: Home, Self-Care 01 Condition: Good Clinical Impression: Thumb fracture Qualifiers: Encounter type: initial encounter Fracture type: closed Phalanx: distal Fracture alignment: nondisplaced Laterality: right Qualified Code(s): S62.524A - Nondisplaced fracture of distal phalanx of right thumb, initial encounter for closed fracture - Discharge Information Prescriptions: Ibuprofen [Motrin] 600 mg PO Q6H PRN #20 tab PRN Reason: Pain Acetaminophen/oxyCODONE [Percocet 325-5 MG] 1 each PO Q6H PRN #8 tab PRN Reason: Pain Instructions: Thumb Fracture Referrals: PCP,None [Primary Care Provider] - Forms: ED Department Discharge Additional Instructions: Please wear the thumb splint for at least 1 week. I have sent pain medication to [facility]. The following information is given to patients seen in the emergency department who are being discharged to home. This information is to outline your options for follow-up care. We provide all patients seen in our emergency department with a follow-up referral. The need for follow-up, as well as the timing and circumstances, are variable depending upon the specifics of your emergency department visit. If you don't have a primary care physician on staff, we will provide you with a referral. We always advise you to contact your personal physician following an emergency department visit to inform them of the circumstance of the visit and for follow-up with them and/or the need for any referrals to a consulting specialist. The emergency department will also refer you to a specialist when appropriate. This referral assures that you have the opportunity for follow-up care with a specialist. All of these measure are taken in an effort to provide you with optimal care, which includes your follow-up. Under all circumstances we always encourage you to contact your private physician who remains a resource for coordinating your care. When calling for follow-up care, please make the office aware that this follow-up is from your recent emergency room visit. If for any reason you are refused follow-up, please contact the [facility] Emergency Department at and asked to speak to the emergency department charge nurse. Please follow up with your primary care physician. If you do not have a primary care physician, see below: [facility] [address] [place] [id number] [facility] [address] [place] [id number] [facility] [address] [place] [address] Sepsis Event Note (ED) - Focused Exam Vital Signs: Vital Signs Temp Pulse Resp BP Pulse Ox 03/10/21 18:27 98.1 F 80 18 123/80 98 - My Orders Last 24 Hours: My Active Orders 03/10/21 18:29 Fingers Thumb Rt F5 [CR] Stat 03/10/21 18:55 Splinting [RC] ASDIRECTED - Assessment/Plan Last 24 Hours: My Active Orders 03/10/21 18:29 Fingers Thumb Rt F5 [CR] Stat 03/10/21 18:55 Splinting [RC] ASDIRECTED
--- NOTE | 2021-03-10 19:04 | CR ---
Indication: Trauma. Technique: Right thumb 3 views. Comparison: None. Findings: Bones: Fall oblique image demonstrates a suspected small nondisplaced fracture in the anterior cortex of the distal phalanx. No other osseous abnormality. Joint spaces: Unremarkable. Soft tissues: Unremarkable. Dictated by Darren Curtis MD @ 03/10/2021 7:02:46 PM (Electronically Signed)
== END 2021-03-10 19:34 | disposition home or self-care (01) ==
LOC: MW.ED 18:12
DX: S62.524A Nondisplaced fracture of distal phalanx of right thumb, initial encounter for closed fracture (principal); W22.09XA Striking against other stationary object, initial encounter
CPT/HCPCS: 73140; 99283; A9270

== ENCOUNTER 2021-05-04 23:12 | Emergency (ER) | payer MEDICAID | END 2021-05-05 00:03 | disposition home or self-care (01) | LOC: MW.ED 23:12 | DX: R50.9 Fever, unspecified (principal); R19.7 Diarrhea, unspecified; R05.9 Cough, unspecified; Z20.822 Contact with and (suspected) exposure to COVID-19 | CPT/HCPCS: 71045; 71045-26; 99283-25 ==

== ENCOUNTER 2021-08-11 04:25 | Emergency (ER) | payer MEDICAID ==
[2021-08-11] MEDS ORDERED: Ketorolac 30 MG/ML SDV IM ONE (04:33)
== END 2021-08-11 06:04 | disposition home or self-care (01) ==
LOC: MW.ED 04:25
DX: M79.642 Pain in left hand (principal)
CPT/HCPCS: 73130; 96372; 99283; J1885

== ENCOUNTER 2021-12-16 23:35 | Emergency (ER) | payer MEDICAID | END 2021-12-17 01:15 | disposition left against medical advice (07) | LOC: MW.ED 23:35 | DX: Z53.21 Procedure and treatment not carried out due to patient leaving prior to being seen by health care provider (principal) ==

== ENCOUNTER 2022-04-12 15:39 | Emergency (ER) | payer BC, MEDICAID ==
[2022-04-12] MEDS ORDERED: Sodium Chloride 0.9% 10 ML Syringe FLUSH PRN (17:38)
[2022-04-12] MEDS ORDERED: Sodium Chloride 0.9% 2.5 ML Syringe FLUSH PRN (17:38)
[2022-04-12 17:58] LABS: CARBON DIOXIDE,CO2 27.6 mmol/L (21.0-32.0); POTASSIUM,K 3.9 mmol/L (3.5-5.1)
[2022-04-12] MEDS ORDERED: Iopamidol 755 MG/ML 500 ML Multipack Bottle IVPUSH ONE (18:21)
[2022-04-12] MEDS ORDERED: Ketorolac 30 MG/ML SDV IVPUSH ONE (18:24)
[2022-04-12 18:34] LABS: CORONAVIRUS COVID-19 NAA NEGATIVE (NEGATIVE); INFLUENZA A NAA NEGATIVE (NEGATIVE); INFLUENZA B NAA NEGATIVE (NEGATIVE); RESPIRATORY SYNCYTIAL VIR NAA NEGATIVE (NEGATIVE)
== END 2022-04-12 19:26 | disposition home or self-care (01) ==
LOC: MW.ED 15:39
DX: K59.00 Constipation, unspecified (principal); K52.9 Noninfective gastroenteritis and colitis, unspecified; Z20.822 Contact with and (suspected) exposure to COVID-19
CPT/HCPCS: 0241U; 36415; 71046; 74177; 80053; 81001; 81025; 85025; 96374; 99284; J1885; J3490; Q9967

== ENCOUNTER 2022-06-11 08:08 | Emergency (ER) | payer BC, MEDICAID ==
[2022-06-11] MEDS ORDERED: Acetaminophen 500 MG Tab PO ONE (08:29)
[2022-06-11] MEDS ORDERED: Ibuprofen 600 MG Tab PO ONE (08:29)
== END 2022-06-11 09:20 | disposition home or self-care (01) ==
LOC: MW.ED 08:08
DX: M25.562 Pain in left knee (principal); Z72.0 Tobacco use
CPT/HCPCS: 73562; 99283; A9270

== ENCOUNTER 2022-11-10 15:57 | Emergency (ER) | payer BC, MEDICAID ==
[2022-11-10] MEDS ORDERED: oxyCODONE 5 MG Tab PO STA (18:24)
== END 2022-11-10 18:40 | disposition home or self-care (01) ==
LOC: MW.ED 15:57
DX: M53.3 Sacrococcygeal disorders, not elsewhere classified (principal)
CPT/HCPCS: 72220; 99283; A9270

== ENCOUNTER 2022-11-20 15:24 | Emergency (ER) | payer SELFPAY ==
[2022-11-20] MEDS ORDERED: Sodium Chloride 0.9% 10 ML Syringe FLUSH PRN (16:08)
[2022-11-20] MEDS ORDERED: Sodium Chloride 0.9% 2.5 ML Syringe FLUSH PRN (16:08)
[2022-11-20] MEDS ORDERED: Sodium Chloride 0.9% 1,000 ML IV ONE (16:08)
[2022-11-20] MEDS ORDERED: Acetaminophen 500 MG Tab PO ONE (16:09)
[2022-11-20] MEDS ORDERED: Ketorolac 30 MG/ML SDV IVPUSH ONE (16:09)
[2022-11-20 16:37] LABS: BASOPHILS PERCENT AUTO 0.2 % (0.0-1.5); EOSINOPHILS PERCENT AUTO 0.2 % (0.0-7.0); HEMATOCRIT 42.3 % (36.0-46.0); HEMOGLOBIN 14.6 g/dL (12.0-16.0); LYMPHOCYTES ABSOLUTE AUTO 1.1 K/uL (0.6-2.4); LYMPHOCYTES PERCENT AUTO 22.4 % (16.0-40.0); MEAN CORPUSCULAR HEMOGLOBIN 33.3 pg (27.0-32.0); MEAN CORPUSCULAR HGB CONC 34.5 g/dL (31.0-37.0); MEAN CORPUSCULAR VOLUME 96.6 fL (80.0-98.0); MONOCYTES ABSOLUTE AUTO 0.7 K/uL (0.0-0.8); MONOCYTES PERCENT AUTO 14.5 % (0.0-15.0); NEUTROPHILS ABSOLUTE AUTO 3.1 K/uL (1.4-5.7); NEUTROPHILS PERCENT AUTO 62.7 % (48.0-80.0); NRBC ABSOLUTE 0 K/uL; PLATELET COUNT,PLT 253 K/uL (150-400); RED BLOOD CELL COUNT 4.38 M/uL (4.30-5.90); WHITE BLOOD CELL COUNT,WBC 4.95 K/uL (4.0-11.0)
[2022-11-20 17:14] LABS: A/G RATIO 0.8 (0.9-1.6); ALBUMIN 3.5 g/dL (3.4-5.0); BILIRUBIN TOTAL 0.9 mg/dL (0.2-1.0); CARBON DIOXIDE,CO2 24.2 mmol/L (21.0-32.0); CREATININE 0.9 mg/dL (0.6-1.0); EST CRCL DRUG DOSING (CG) 92.91 mL/min; POTASSIUM,K 3.7 mmol/L (3.5-5.1); PROTEIN TOTAL,TP 7.8 g/dL (6.4-8.2)
[2022-11-20 17:15] LABS: LACTIC ACID 0.7 mmol/L (0.4-2.0)
[2022-11-20 18:53] LABS: APPEARANCE,URINE CLOUDY; COLOR,URINE YELLOW; GLUCOSE,URINE NEGATIVE (NEGATIVE); KETONES,URINE 40 mg/dL (NEGATIVE); LEUKOCYTE ESTERASE,URINE SMALL (NEGATIVE); NITRITE,URINE NEGATIVE (NEGATIVE); OCCULT BLOOD,URINE NEGATIVE (NEGATIVE); PROTEIN,URINE TRACE mg/dL (NEGATIVE)
[2022-11-20 18:58] LABS: BILIRUBIN,URINE MODERATE (NEGATIVE)
[2022-11-20 19:02] LABS: AMORPHOUS SEDIMENT,URINE OCCASIONAL (NEGATIVE); BACTERIA,URINE MODERATE (NEGATIVE); EPITHELIAL CELLS,URINE FEW (NONE-FEW); HYALINE CASTS,URINE OCCASIONAL (0-2/LPF); MUCUS,URINE FEW (NONE-MOD); RBC,URINE 0-2 (0-2/HPF); SQUAMOUS EPITHELIAL CELLS,UR FEW
== END 2022-11-20 19:26 | disposition home or self-care (01) ==
LOC: MW.ED 15:24
DX: U07.1 COVID-19 (principal); R74.01 Elevation of levels of liver transaminase levels; Z72.0 Tobacco use
CPT/HCPCS: 36415; 71045; 80053; 81001; 81025; 83605; 85025; 87040; 87086; 87635; 87651; 96361; 96374; 99283; A9270; J1885; J3490; J7030; 99284; U0002

== ENCOUNTER 2023-05-08 12:07 | Emergency (ER) | payer BC ==
[2023-05-08 12:44] LABS: COLOR,URINE YELLOW; GLUCOSE,URINE NEGATIVE (NEGATIVE); KETONES,URINE NEGATIVE (NEGATIVE); LEUKOCYTE ESTERASE,URINE LARGE (NEGATIVE); NITRITE,URINE POSITIVE (NEGATIVE); OCCULT BLOOD,URINE MODERATE (NEGATIVE); PH,URINE 5.5 (5.0-8.0); PROTEIN,URINE 30 mg/dL (NEGATIVE); UROBILINOGEN,URINE 0.2 EU/dL (<2.0)
[2023-05-08 12:45] LABS: BILIRUBIN,URINE SMALL (NEGATIVE)
[2023-05-08 12:46] LABS: APPEARANCE,URINE CLOUDY
[2023-05-08 12:54] LABS: BACTERIA,URINE 3+ (NEGATIVE); MUCUS,URINE LIGHT (NONE-MOD); SQUAMOUS EPITHELIAL CELLS,UR MODERATE; WBC,URINE TO NUMEROUS TO COUNT (0-5/HPF)
== END 2023-05-08 13:32 | disposition home or self-care (01) ==
LOC: MW.ED 12:07
DX: N30.00 Acute cystitis without hematuria (principal); Z90.49 Acquired absence of other specified parts of digestive tract
CPT/HCPCS: 81001; 81025; 87086; 87088; 87186; 99283

== ENCOUNTER 2023-08-08 14:18 | Emergency (ER) | payer BC ==
[2023-08-08] MEDS: Sodium Chloride 0.9% 2.5 ML Syringe FLUSH PRN (15:04)
[2023-08-08] MEDS: Sodium Chloride 0.9% 10 ML Syringe FLUSH PRN (15:04)
[2023-08-08] MEDS: Ketorolac 30 MG/ML SDV IVPUSH ONE (15:04)
[2023-08-08 15:14] LABS: BASOPHILS ABSOLUTE AUTO 0.02 K/uL (0.00-0.20); BASOPHILS PERCENT AUTO 0.2 % (0.0-1.0); EOSINOPHILS PERCENT AUTO 1.1 % (0.0-6.0); HEMATOCRIT 40.2 % (37.0-47.0); HEMOGLOBIN 14.5 g/dL (12.0-16.0); IMMATURE GRAN ABSOLUTE AUTO 0.03 K/uL (0.00-0.05); IMMATURE GRAN PERCENT AUTO 0.3 % (0.0-0.4); LYMPHOCYTES ABSOLUTE AUTO 2.86 K/uL (1.00-4.80); LYMPHOCYTES PERCENT AUTO 32.7 % (24.0-44.0); MEAN CORPUSCULAR HEMOGLOBIN 34.6 pg (28.0-32.0); MEAN CORPUSCULAR HGB CONC 36.1 g/dL (32.0-36.0); MEAN CORPUSCULAR VOLUME 95.9 fL (83.0-99.0); MEAN PLATELET VOLUME 9.9 fL (9.4-12.3); MONOCYTES ABSOLUTE AUTO 0.62 K/uL (0.00-0.80); MONOCYTES PERCENT AUTO 7.1 % (0.0-8.0); NEUTROPHILS ABSOLUTE AUTO 5.11 K/uL (1.80-7.70); NEUTROPHILS PERCENT AUTO 58.6 % (41.0-71.0); PLATELET COUNT,PLT 293 K/uL (150-400); RED BLOOD CELL COUNT 4.19 M/uL (4.10-5.30); WHITE BLOOD CELL COUNT,WBC 8.74 K/uL (3.9-11.3)
[2023-08-08 16:02] LABS: A/G RATIO 0.8 (0.9-1.6); ALANINE AMINOTRANSFERASE,ALT 145 IU/L (14-63); ALBUMIN 3.4 g/dL (3.4-5.0); ALKALINE PHOSPHATASE 218 U/L (46-116); ASPARTATE AMNIOTRANSFERASE,AST 181 IU/L (15-37); BILIRUBIN TOTAL 0.9 mg/dL (0.2-1.0); BLOOD UREA NITROGEN,BUN 5 mg/dL (7.0-18.0); CALCIUM 9.6 mg/dL (8.5-10.1); CARBON DIOXIDE,CO2 22.7 mmol/L (21.0-32.0); CHLORIDE,CL 102 mmol/L (98-107); CREATININE 0.7 mg/dL (0.6-1.0); EST CRCL DRUG DOSING (CG) 119.46 mL/min; ESTIMATED GFR 117 mL/min (>60); GLUCOSE RANDOM 81 mg/dL (74-106); POTASSIUM,K 3.6 mmol/L (3.5-5.1); PROTEIN TOTAL,TP 7.5 g/dL (6.4-8.2); SODIUM,NA 135 mmol/L (136-145)
== END 2023-08-08 16:38 | disposition home or self-care (01) ==
LOC: MW.ED 14:18
DX: R07.89 Other chest pain (principal); F17.210 Nicotine dependence, cigarettes, uncomplicated; Z75.8 Other problems related to medical facilities and other health care
CPT/HCPCS: 36415; 71045; 80053; 84484; 85025; 85379; 93005; 96374; 99285; J1885; J3490

== ENCOUNTER 2024-01-28 17:58 | Emergency (ER) | payer BC ==
[2024-01-28 19:15] LABS: BASOPHILS ABSOLUTE AUTO 0.03 K/uL (0.00-0.20); BASOPHILS PERCENT AUTO 0.3 % (0.0-1.0); EOSINOPHILS ABSOLUTE AUTO 0.12 K/uL (0.00-0.45); EOSINOPHILS PERCENT AUTO 1.4 % (0.0-6.0); HEMATOCRIT 39.3 % (37.0-47.0); HEMOGLOBIN 14.5 g/dL (12.0-16.0); IMMATURE GRAN ABSOLUTE AUTO 0.02 K/uL (0.00-0.05); IMMATURE GRAN PERCENT AUTO 0.2 % (0.0-0.4); LYMPHOCYTES ABSOLUTE AUTO 3.94 K/uL (1.00-4.80); LYMPHOCYTES PERCENT AUTO 44.4 % (24.0-44.0); MEAN CORPUSCULAR HEMOGLOBIN 34.3 pg (28.0-32.0); MEAN CORPUSCULAR HGB CONC 36.9 g/dL (32.0-36.0); MEAN CORPUSCULAR VOLUME 92.9 fL (83.0-99.0); MONOCYTES PERCENT AUTO 6.8 % (0.0-8.0); NEUTROPHILS ABSOLUTE AUTO 4.16 K/uL (1.80-7.70); NEUTROPHILS PERCENT AUTO 46.9 % (41.0-71.0); PLATELET COUNT,PLT 256 K/uL (150-400); RED BLOOD CELL COUNT 4.23 M/uL (4.10-5.30); WHITE BLOOD CELL COUNT,WBC 8.87 K/uL (3.9-11.3)
[2024-01-28] MEDS: Acetaminophen 500 MG Tab PO ONE (19:37)
[2024-01-28] MEDS: Ibuprofen 400 MG Tab PO ONE (19:37)
[2024-01-28 19:45] LABS: A/G RATIO 0.9 (0.9-1.6); ALBUMIN 3.5 g/dL (3.4-5.0); BILIRUBIN TOTAL 0.7 mg/dL (0.2-1.0); CALCIUM 9.8 mg/dL (8.5-10.1); CARBON DIOXIDE,CO2 23.1 mmol/L (21.0-32.0); CREATININE 0.7 mg/dL (0.6-1.0); EST CRCL DRUG DOSING (CG) 118.35 mL/min; PROTEIN TOTAL,TP 7.4 g/dL (6.4-8.2)
[2024-01-28 20:01] LABS: CORONAVIRUS COVID-19 NAA NEGATIVE (NEGATIVE); INFLUENZA A NAA NEGATIVE (NEGATIVE); INFLUENZA B NAA NEGATIVE (NEGATIVE); RESPIRATORY SYNCYTIAL VIR NAA NEGATIVE (NEGATIVE)
== END 2024-01-28 20:58 | disposition home or self-care (01) ==
LOC: MW.ED 17:58
DX: R05.9 Cough, unspecified (principal); Z90.49 Acquired absence of other specified parts of digestive tract; F17.210 Nicotine dependence, cigarettes, uncomplicated
CPT/HCPCS: 0241U; 36415; 71046; 80053; 83690; 84703; 85025; 99285; A9270; 99283

== ENCOUNTER 2024-04-07 22:55 | Emergency (ER) | payer BC ==
[2024-04-07 23:42] LABS: BASOPHILS ABSOLUTE AUTO 0.03 K/uL (0.00-0.20); BASOPHILS PERCENT AUTO 0.4 % (0.0-1.0); EOSINOPHILS ABSOLUTE AUTO 0.09 K/uL (0.00-0.45); EOSINOPHILS PERCENT AUTO 1.1 % (0.0-6.0); HEMATOCRIT 41.8 % (37.0-47.0); HEMOGLOBIN 14.9 g/dL (12.0-16.0); IMMATURE GRAN ABSOLUTE AUTO 0.01 K/uL (0.00-0.05); IMMATURE GRAN PERCENT AUTO 0.1 % (0.0-0.4); LYMPHOCYTES ABSOLUTE AUTO 3.26 K/uL (1.00-4.80); LYMPHOCYTES PERCENT AUTO 39.4 % (24.0-44.0); MEAN CORPUSCULAR HEMOGLOBIN 33.9 pg (28.0-32.0); MEAN CORPUSCULAR HGB CONC 35.6 g/dL (32.0-36.0); MEAN PLATELET VOLUME 9.5 fL (9.4-12.3); MONOCYTES ABSOLUTE AUTO 0.62 K/uL (0.00-0.80); MONOCYTES PERCENT AUTO 7.5 % (0.0-8.0); NEUTROPHILS ABSOLUTE AUTO 4.27 K/uL (1.80-7.70); NEUTROPHILS PERCENT AUTO 51.5 % (41.0-71.0); PLATELET COUNT,PLT 337 K/uL (150-400); WHITE BLOOD CELL COUNT,WBC 8.28 K/uL (3.9-11.3)
[2024-04-07 23:42] LABS: APPEARANCE,URINE SLT CLOUDY; BILIRUBIN,URINE NEGATIVE (NEGATIVE); COLOR,URINE ORANGE; GLUCOSE,URINE NEGATIVE (NEGATIVE); KETONES,URINE NEGATIVE (NEGATIVE); LEUKOCYTE ESTERASE,URINE SMALL (NEGATIVE); NITRITE,URINE NEGATIVE (NEGATIVE); OCCULT BLOOD,URINE LARGE (NEGATIVE); PROTEIN,URINE TRACE mg/dL (NEGATIVE)
[2024-04-07] MEDS: Morphine 4 MG/ML Syringe IVPUSH ONE (23:46)
[2024-04-07 23:50] LABS: BACTERIA,URINE FEW (NEGATIVE); EPITHELIAL CELLS,URINE RARE (NONE-FEW); RBC,URINE TOO NUMEROUS TO CT (0-2/HPF); WBC,URINE 0-2 (0-5/HPF)
[2024-04-08 00:24] LABS: CALCIUM 9.5 mg/dL (8.5-10.1); CARBON DIOXIDE,CO2 25.1 mmol/L (21.0-32.0); CREATININE 0.6 mg/dL (0.6-1.0); EST CRCL DRUG DOSING (CG) 138.07 mL/min; POTASSIUM,K 3.1 mmol/L (3.5-5.1)
[2024-04-08] MEDS: Ketorolac 30 MG/ML SDV IM ONE (01:37)
[2024-04-08] MEDS: Morphine 4 MG/ML Syringe IVPUSH ONE (01:39)
[2024-04-08] MEDS: Tranexamic Acid in NACL,ISO-OS 1,000 MG in Premix Bag 1 BAG IV ONE (01:43)
== END 2024-04-08 02:56 | disposition home or self-care (01) ==
LOC: MW.ED 22:55
DX: O03.9 Complete or unspecified spontaneous abortion without complication (principal)
CPT/HCPCS: 36415; 76817; 80048; 81001; 84702; 85025; 86850; 86900; 86901; 87086; 96372; 96374; 96375; 96376; 99284; J1885; J2270

== ENCOUNTER 2024-04-11 13:06 | Emergency (ER) | payer BC ==
[2024-04-11 13:35] LABS: BASOPHILS ABSOLUTE AUTO 0.02 K/uL (0.00-0.20); BASOPHILS PERCENT AUTO 0.3 % (0.0-1.0); EOSINOPHILS PERCENT AUTO 1.4 % (0.0-6.0); HEMATOCRIT 37.5 % (37.0-47.0); HEMOGLOBIN 13.5 g/dL (12.0-16.0); IMMATURE GRAN ABSOLUTE AUTO 0.02 K/uL (0.00-0.05); IMMATURE GRAN PERCENT AUTO 0.3 % (0.0-0.4); LYMPHOCYTES ABSOLUTE AUTO 3.17 K/uL (1.00-4.80); LYMPHOCYTES PERCENT AUTO 45.9 % (24.0-44.0); MEAN CORPUSCULAR HEMOGLOBIN 33.8 pg (28.0-32.0); MEAN CORPUSCULAR VOLUME 93.8 fL (83.0-99.0); MEAN PLATELET VOLUME 9.5 fL (9.4-12.3); MONOCYTES ABSOLUTE AUTO 0.42 K/uL (0.00-0.80); MONOCYTES PERCENT AUTO 6.1 % (0.0-8.0); NEUTROPHILS ABSOLUTE AUTO 3.18 K/uL (1.80-7.70); PLATELET COUNT,PLT 257 K/uL (150-400); WHITE BLOOD CELL COUNT,WBC 6.91 K/uL (3.9-11.3)
[2024-04-11 14:06] LABS: A/G RATIO 0.8 (0.9-1.6); ALBUMIN 3.4 g/dL (3.4-5.0); BILIRUBIN TOTAL 0.6 mg/dL (0.2-1.0); CALCIUM 9.1 mg/dL (8.5-10.1); CARBON DIOXIDE,CO2 25.9 mmol/L (21.0-32.0); CREATININE 0.6 mg/dL (0.6-1.0); EST CRCL DRUG DOSING (CG) 138.07 mL/min; POTASSIUM,K 3.3 mmol/L (3.5-5.1); PROTEIN TOTAL,TP 7.5 g/dL (6.4-8.2)
[2024-04-11] MEDS: Sodium Chloride 0.9% 1,000 ML IV ONE (14:24)
[2024-04-11] MEDS: Morphine 2 MG/ML SYRINGE IVPUSH ONE (14:24)
[2024-04-11 14:25] LABS: INR 1.08 (0.86-1.11); PTT,PARTIAL THROMBOPLSTIN TIME 26.2 SEC (23.9-30.7)
[2024-04-11 14:26] LABS: BILIRUBIN,URINE SMALL (NEGATIVE); GLUCOSE,URINE NEGATIVE (NEGATIVE); KETONES,URINE NEGATIVE (NEGATIVE); LEUKOCYTE ESTERASE,URINE NEGATIVE (NEGATIVE); NITRITE,URINE POSITIVE (NEGATIVE); OCCULT BLOOD,URINE LARGE (NEGATIVE); PROTEIN,URINE 30 mg/dL (NEGATIVE)
[2024-04-11 14:27] LABS: APPEARANCE,URINE CLOUDY; COLOR,URINE DARK YELLOW
[2024-04-11 14:42] LABS: BACTERIA,URINE FEW (NEGATIVE); EPITHELIAL CELLS,URINE OCCASIONAL (NONE-FEW); RBC,URINE 75-100 (0-2/HPF); WBC,URINE 0-3 (0-5/HPF)
[2024-04-11] MEDS: cefTRIAXone 1 GM in Sodium Chloride 0.9% 50 ML IV ONE (15:19)
[2024-04-11] MEDS: Tranexamic Acid in NACL,ISO-OS 1,000 MG in Premix Bag 1 BAG IV ONE (16:18)
== END 2024-04-11 16:28 | disposition home or self-care (01) ==
LOC: MW.ED 13:06
DX: O03.9 Complete or unspecified spontaneous abortion without complication (principal); O73.0 Retained placenta without hemorrhage; N30.01 Acute cystitis with hematuria; F17.210 Nicotine dependence, cigarettes, uncomplicated; Z75.8 Other problems related to medical facilities and other health care
CPT/HCPCS: 36415; 76817; 80053; 81001; 84702; 85025; 85610; 85730; 87086; 96361; 96365; 96375; 99284; J0696; J2270; J3490; J7030; 99283

== ENCOUNTER 2024-06-05 14:48 | Emergency (ER) | payer BC ==
[2024-06-05] MEDS: traMADol 50 MG Tab PO STA (16:01)
== END 2024-06-05 18:00 | disposition home or self-care (01) ==
LOC: MW.ED 14:48
DX: S83.8X1A Sprain of other specified parts of right knee, initial encounter (principal); Z90.49 Acquired absence of other specified parts of digestive tract; Z75.8 Other problems related to medical facilities and other health care; W00.0XXA Fall on same level due to ice and snow, initial encounter
CPT/HCPCS: 73562; 99283; A9270